=== PATIENT | female | born 1970 | race Caucasian/White ===

== ENCOUNTER 2017-12-08 12:22 | Emergency (ER) | payer SELFPAY ==
--- NOTE | 2017-12-08 12:25 | ED.RN ---
PT RIPS OF BP CUFF AND STORMS OUT OF DEPARTMENT SCREAMING. I WILL NOT BE ABUSED.
== END 2017-12-08 13:25 | disposition left against medical advice (07) ==
LOC: ED 13:07
PROVIDERS: Emergency Provider Emergency Medicine
DX: Z53.21 Procedure and treatment not carried out due to patient leaving prior to being seen by health care provider (principal)

== ENCOUNTER 2017-12-10 11:57 | Emergency (ER) | payer MEDICARE, SELFPAY ==
[2017-12-10] VITALS (7 sets, daily range): BP systolic 143; BP diastolic 94; PULSE 63–130; RESP 12–18; TEMP 36.8; O2SAT 95–98; BMI 42.2
--- NOTE | 2017-12-10 12:20 | EKG12_ITS ---
Test Reason : MENTAL HEALTH Blood Pressure : / mmHG Vent. Rate : 071 BPM Atrial Rate : 071 BPM P-R Int : 180 ms QRS Dur : 078 ms QT Int : 402 ms P-R-T Axes : 025 -03 027 degrees QTc Int : 436 ms Normal sinus rhythm Low voltage QRS Inferior infarct , age undetermined Abnormal ECG Confirmed by KADI SANFORD, ANTHONY ([id number]), loan expeditor MONTSERRAT CAMPBELL ([id number]) on 12/14/2017 2:51:00 PM Referred By: VITA Confirmed By:ANTHONY WALLIS MD
--- NOTE | 2017-12-10 12:26 | ED.VISSUMM ---
- ER Visit Summary Date of Service: 12/10/17 Chief Complaint: Threatening emergency department staff History of Present Illness: The patient is a 47 F who was brought in by police. She was at home. She was calling the emergency department today. She says she has a gone and was going to shoot staff in the emergency department. Apparently, she has been calling the hospital over the past several days with increasing threats of violence. Patient has a history of bipolar disorder and psychosis. She was previously admitted at [facility]. She has no suicidal complaints. She has no medical complaints other than occasional constipation, but she would not cooperate with the history. Physical Examination: Tachycardic. Afebrile. Alert and oriented. Blunt affect. Agitated. Very tense and angry. Patient has flight of ideas. Trouble concentrating head and neck atraumatic. Heart regular. Lungs clear. Abdomen soft. Skin appears normal. Test Results: We will check labs, tox, alcohol, EKG, and test. Emergency Department Course and Treatment: Patient had psych precautions on arrival. She was pink slipped by police. Geodon IM as needed for agitation. We will continue to monitor and contact the crisis counselor. Patient did not require Geodon at the time of this dictation. Her workup is largely unremarkable. Patient is medically cleared to proceed with psychiatric hospitalization. Crisis counselor was contacted. Treatment Plan: As above Disposition: Transfer to psychiatric facility pending Impression: 1. Mood disorder 2. Homicidal ideation This note was generated with [employer]Ground dictation software. It may contain incorrect words, spelling, and punctuation that were not noted in review of the chart prior to signing ED Disposition - Plan for ED Patient: Chief Complaint: Mental Health Referrals: Care Physician,No Primary [Primary Care Provider] -
--- NOTE | 2017-12-10 12:29 | ED.DCSUM_ITS ---
- ER Visit Summary Date of Service: 12/10/17 Chief Complaint: Threatening emergency department staff History of Present Illness: The patient is a 47 F who was brought in by police. She was at home. She was calling the emergency department today. She says she has a gone and was going to shoot staff in the emergency department. Apparently, she has been calling the hospital over the past several days with increasing threats of violence. Patient has a history of bipolar disorder and psychosis. She was previously admitted at [facility]. She has no suicidal complaints. She has no medical complaints other than occasional constipation, but she would not cooperate with the history. Physical Examination: Tachycardic. Afebrile. Alert and oriented. Blunt affect. Agitated. Very tense and angry. Patient has flight of ideas. Trouble concentrating head and neck atraumatic. Heart regular. Lungs clear. Abdomen soft. Skin appears normal. Test Results: We will check labs, tox, alcohol, EKG, and test. Emergency Department Course and Treatment: Patient had psych precautions on arrival. She was pink slipped by police. Geodon IM as needed for agitation. We will continue to monitor and contact the crisis counselor. Patient did not require Geodon at the time of this dictation. Her workup is largely unremarkable. Patient is medically cleared to proceed with psychiatric hospitalization. Crisis counselor was contacted. Treatment Plan: As above Disposition: Transfer to psychiatric facility pending Impression: 1. Mood disorder 2. Homicidal ideation This note was generated with Nurix dictation software. It may contain incorrect words, spelling, and punctuation that were not noted in review of the chart prior to signing ED Disposition - Plan for ED Patient: Chief Complaint: Mental Health Referrals: Care Physician,No Primary [Primary Care Provider] -
[2017-12-10 12:30] LABS: Bacteria 0 SEEN /hpf (None Seen); Color, Urine Yellow (Yellow); Glucose, Dipstick NEGATIVE (Normal); Ketone-Dipstick 5 mg/dl (Negative); Leukocyte Esterase-Dipstick 25 /ul (Negative); Mucous, Urine 0 SEEN /hpf (<or=2+); Nitrite-Dipstick Negative (Negative); Occult Blood-Urine 10 /ul (Negative); Protein-Dipstick Negative (Negative); Red Blood Cells-Urine 0 SEEN /hpf (0-5); Urine Bilirubin Dipstick Negative (Negative); Urine Clarity Clear (Clear); Urine Urobilinogen Normal (Normal); White Blood Cells 0-5 SEEN /hpf (0-5)
[2017-12-10 12:31] LABS: Squamous Epithelial Cells - UA 0-5 SEEN /hpf (5-10)
[2017-12-10 12:32] LABS: Internal QC Validated? YES +Cl - CLEAR BKGD; Pregnancy, Urine Negative Negative
[2017-12-10 12:57] LABS: Absolute Lymphocyte Count 1.33 X10^3/ul (0.83-4.51); Basophil# 0.03 X10^3/uL; Basophil% 0.4 % (0-1); Eosinophil# 0.13 X10^3/uL; Eosinophils% 1.8 % (0-5); Hematocrit 43.7 % (37-47); Hemoglobin 14.5 g/dl (12.0-15.0); Lymphocyte # 1.33 X10^3/ul (4.0); Lymphocyte % 18.4 % (19-41); Mean Corp Hgb Conc 33.2 g/gl (32-36); Mean Corpuscular Hgb 29.6 pg (27.0-32.0); Mean Corpuscular Volume 89.2 fL (81-99); Mean Platelet Vol. 9.5 fl (6.2-12.0); Monocyte# 0.69 X10^3/uL; Monocyte% 9.5 % (0-10); Neutrophil # 5.04 X10^3/uL (2.7-7.7); Neutrophil % 69.8 % (47-70); Platelet Count 313 K/mm3 (150-450); RBC Distribution Width CV 12.7 % (11.6-14.6); RBC Distribution Width SD 40.8 fl (35.1-43.9); White Blood Count 7.2 K/mm3 (4.4-11.0)
[2017-12-10 13:01] LABS: Amphetamine Urine VISTA NEGATIVE (<1000 ng/mL); Barbiturate Urine VISTA NEGATIVE (< 200 ng/mL); Benzodiazepine Urine VISTA NEGATIVE (< 200 ng/mL); Cocaine Urine VISTA NEGATIVE (< 300 ng/mL); Ecstacy Urine VISTA NEGATIVE (< 500 ng/mL); Methadone Urine VISTA NEGATIVE (< 300 ng/mL); PCP Urine VISTA NEGATIVE (< 25 ng/mL); THC Urine VISTA NEGATIVE (< 50 ng/mL); Vista UDS pH Range 5
[2017-12-10 13:02] LABS: POSITIVE COUNT NO; POSITIVE DIFFERENTIAL NO; POSITIVE MORPHOLOGY NO
[2017-12-10 13:15] LABS: AST(SGOT) 19 U/L (15-37); Alanine Aminotransfer ALT/SGPT 30 U/L (13-56); Alkaline Phosphatase 88 U/L (45-117); Anion Gap 9 (5-15); BUN 12 mg/dL (7-18); BUN/Creat Ratio 17.6 RATIO (10-20); Calcium,Total 8.7 mg/dL (8.5-10.1); Chloride 108 mmol/L (98-107); Creatinine, Serum 0.68 mg/dL (0.55-1.02); EST Glomerular Filtration Rate 99 mL/min (>60); Est Glom Filt Rate - Afr Amer 120 mL/min (>60); Estimated Creatinine Clearance 90.22 ml/min; Globulin 3.9 g/dL (2.2-4.2); Glucose 95 mg/dL (74-106); Potassium 3.5 mmol/L (3.5-5.1); Protein, Total 7.9 g/dL (6.4-8.2); Sodium Level 144 mmol/L (136-145)
--- NOTE | 2017-12-10 13:37 | PCA ---
[facility] WILL BE CALLING BACK
[2017-12-10 14:27] LABS: Alcohol, Blood (Medical)-Serum < 3.0 mg/dL
--- NOTE | 2017-12-10 17:38 | ED.RN ---
[facility]
--- NOTE | 2017-12-10 19:09 | ED.RN ---
THIS RN SPOKE WITH BONITA [facility] COUNSELOR, PT IS PINK SLIPPED TO [facility], IS CURRENTLY AWAITING AN ACCEPTING DRJose AND A BED. HE REPORTS PT WILL BE HERE OVERNIGHT.
--- NOTE | 2017-12-10 21:59 | ED.RN ---
PT UP TO BATHROOM, REFUSES TO TIE GOWN, GOWN FALLING OFF IN HALLWAY EXPOSING PT. PT SITTING UPRIGHT IN BED, TALKING LOUDLY IN RAMBLING TONE, DENIES NEEDS WHEN ASKED.
[2017-12-11] VITALS (22 sets, daily range): BP systolic 140–197; BP diastolic 70–100; PULSE 75–89; RESP 14–20; TEMP 36.7; O2SAT 95–99
[2017-12-11] MEDS: Ziprasidone IM 20 MG/ML VIAL IM (05:16)
--- NOTE | 2017-12-11 05:19 | ED.RN ---
PT WALKED TO THE WAITING ROOM AND WAS ARGUING AND WOULD NOT LISTEN TO EXPLANATION.PT REFUSED TO GO BACK TO HER ROOM AND STATED SHE DID NOT HAVE TO.EXPLANATION WAS GIVEN FOR WHY SHE NEEDED TO STAY IN HER ROOM.PT BECAME LOUDER AND LOUDER.SECURITY CALLED AND THE [place] POLICE.PT FINIALLY WENT BACK TO HER ROOM,BUT WOULD NOT COOPERATE.PT WAS ESCULATING,GEODON WAS GIVEN AND LEATHER RESTRAINTSX4 APPLIED.POLICE AND SECURITY IN ROOM.
--- NOTE | 2017-12-11 09:10 | NURSING ---
CALLED [facility], TALKED TO AZUL. SHE WILL CALL AND CHECK ON ACCEPTANCE AT [facility].
--- NOTE | 2017-12-11 10:33 | NURSING ---
1026 SHYANN IGLESIAS, CALLED. THERE ARE 4 ADMITS AND 2 AFTER THAT BEFORE PATIENT CAN GET A BED. MIGHT BE TONIGHT OR TOMORROW FOR BED
[2017-12-11] MEDS: Ziprasidone IM 20 MG/ML VIAL 10 MG IM (12:21)
--- NOTE | 2017-12-11 17:27 | NURSING ---
CALLED [facility], TALKED TO BONITA. HE'S WAITING TO HEAR FROM JOSE LUIS. JOSE LUIS IS IN [place]
--- NOTE | 2017-12-11 18:06 | ED.RN ---
[facility]IS CALLED (BONITA ELLIS) INFORMED US THAT THE PATIENT WILL NOT HAVE A ROOM UNTIL EARLIEST TOMORROW.
== END 2017-12-11 22:57 ==
PROVIDERS: Emergency Provider Emergency Medicine
DX: F31.9 Bipolar disorder, unspecified (principal); F29 Unspecified psychosis not due to a substance or known physiological condition; R45.850 Homicidal ideations; R45.1 Restlessness and agitation; K59.00 Constipation, unspecified; Z79.899 Other long term (current) drug therapy; Z78.1 Physical restraint status; Z72.0 Tobacco use
CPT/HCPCS: 80053; 80307; 80320; 81001; 81025; 85025; 93005; 96372; 99283; A4216; G0480; J3486

== ENCOUNTER 2018-06-03 11:08 | Emergency (ER) | payer MEDICARE, MEDICAID, SELFPAY ==
[2018-06-03] VITALS (11 sets, daily range): BP systolic 130–162; BP diastolic 64–108; PULSE 76–89; RESP 15–23; TEMP 36.6; O2SAT 95–100; BMI 39.4
--- NOTE | 2018-06-03 11:27 | ED.VISSUMM ---
- ER Visit Summary Date of Service: 06/03/18 Chief Complaint: [] Upset and threatening neighbors brought in by police history of mental health disorders History of Present Illness: The patient is a 48 F [] patient reportedly called the police this morning because she was concerned neighbors or other individuals were gaining access to her home and disrupting her home by taking good food and putting bad food in, throwing garbage all over the place etc., the police came at her request date performed an assessment she seems very belligerent she seemed to have difficulty focusing would move from one topic to the other, she has a history of known mental health disorder that might include bipolar disease/disorder, delusional disorder unspecified and the police recommended she come to the hospital and she agreed to that for mental health evaluation. On arrival she is quite belligerent she is threatening she screaming she will not focus she indicates that she is upset that the police did not simply arrest her neighbors and that she should not be here, she is also suggesting she is not taking any of her medications nor she following up with any of her providers and she also indicates she just recently was [facility] from [facility] provide details. On general Physical Examination: [] Her vital signs are within normal range on general appearance she is resting in the bed she is an animated she is screaming and yelling she jumped out of the bed to expose her body, she really is uncooperative to examination, I offered to have the protective services officer leave the room so should we could have the history and physical done she refused that insisted the protective services officer stay in the room, she allowed a limited exam there was no obvious abnormalities with her head neck chest abdomen obesity, extremities unremarkable neurologically she is awake and alert running around the room in the emergency department screaming and yelling. I have explained to the patient that she needs to cooperate with our general care protocols and mental health protocols which would include that she get into a gown allow laboratory screening urinalysis collection etc. which she refuses all the above and continues to be threatening and belligerent to staff and threatening to staff for her safety as well as safety of staff should be placed in four-point jarett and provided chemical sedation to help with her care, she continued to scream and yell and be threatening to staff and she was placed in four-point jarett, she will medicated with Geodon 20 Ativan 1 additional medications as clinically warranted and needed, in addition I have asked the mental health services team to come in to complete a mental health assessment Test Results: [] Emergency Department Course and Treatment: [] Screening labs are pending all the above, and are unremarkable, she has been seen now by mental health services they indicate she has a history of paranoid schizophrenia not bipolar disorder Treatment Plan: [] Disposition: [] Pending mental health services evaluation Impression: [] Belligerent behavior, threatening of neighbors, history of mental health disorder noncompliance medications, history of paranoid schizophrenia This note was generated with MondeCafes dictation software. It may contain incorrect words, spelling, and punctuation that were not noted in review of the chart prior to signing ED Disposition - Plan for ED Patient: Chief Complaint: Suicidal Referrals: Care Physician,No Primary [Primary Care Provider] -
--- NOTE | 2018-06-03 11:31 | ED.DCSUM_ITS ---
- ER Visit Summary Date of Service: 06/03/18 Chief Complaint: [] Upset and threatening neighbors brought in by police history of mental health disorders History of Present Illness: The patient is a 48 F [] patient reportedly called the police this morning because she was concerned neighbors or other individuals were gaining access to her home and disrupting her home by taking good food and putting bad food in, throwing garbage all over the place etc., the police came at her request date performed an assessment she seems very belligerent she seemed to have difficulty focusing would move from one topic to the other, she has a history of known mental health disorder that might include bipolar disease/disorder, delusional disorder unspecified and the police recommended she come to the hospital and she agreed to that for mental health evaluation. On arrival she is quite belligerent she is threatening she screaming she will not focus she indicates that she is upset that the police did not simply arrest her neighbors and that she should not be here, she is also suggesting she is not taking any of her medications nor she following up with any of her providers and she also indicates she just recently was released from skilled nursing one provide details. On general Physical Examination: [] Her vital signs are within normal range on general appearance she is resting in the bed she is an animated she is screaming and yelling she jumped out of the bed to expose her body, she really is uncooperative to examination, I offered to have the science and operations officer leave the room so should we could have the history and physical done she refused that insisted the science and operations officer stay in the room, she allowed a limited exam there was no obvious abnormalities with her head neck chest abdomen obesity, extremities unremarkable neurologically she is awake and alert running around the room in the emergency department screaming and yelling. I have explained to the patient that she needs to cooperate with our general care protocols and mental health protocols which would include that she get into a gown allow laboratory screening urinalysis collection etc. which she refuses all the above and continues to be threatening and belligerent to staff and threatening to staff for her safety as well as safety of staff should be placed in four-point jarett and provided chemical sedation to help with her care, she continued to scream and yell and be threatening to staff and she was placed in four-point jarett, she will medicated with Geodon 20 Ativan 1 additional medications as clinically warranted and needed, in addition I have asked the mental health services team to come in to complete a mental health assessment Test Results: [] Emergency Department Course and Treatment: [] Screening labs are pending all the above, and are unremarkable, she has been seen now by mental health services they indicate she has a history of paranoid schizophrenia not bipolar disorder Treatment Plan: [] Disposition: [] Pending mental health services evaluation Impression: [] Belligerent behavior, threatening of neighbors, history of mental health disorder noncompliance medications, history of paranoid schizophrenia This note was generated with Yorxs dictation software. It may contain incorrect words, spelling, and punctuation that were not noted in review of the chart prior to signing ED Disposition - Plan for ED Patient: Chief Complaint: Suicidal Referrals: Care Physician,No Primary [Primary Care Provider] -
[2018-06-03 11:44] LABS: Absolute Lymphocyte Count 2.22 X10^3/ul (0.83-4.51); Absolute Neutrophil Count 6.1 X10^3/uL (2.0-7.7); Basophil# 0.04 X10^3/uL; Basophil% 0.4 % (0-1); Eosinophil# 0.27 X10^3/uL; Eosinophils% 2.9 % (0-5); Hematocrit 40.9 % (37-47); Hemoglobin 13.4 g/dl (12.0-15.0); Lymphocyte # 2.22 X10^3/ul (4.0); Lymphocyte % 23.9 % (19-41); Mean Corp Hgb Conc 32.8 g/gl (32-36); Mean Corpuscular Hgb 29.5 pg (27.0-32.0); Mean Corpuscular Volume 89.9 fL (81-99); Mean Platelet Vol. 9.2 fl (6.2-12.0); Monocyte# 0.67 X10^3/uL; Monocyte% 7.2 % (0-10); Neutrophil # 6.07 X10^3/uL (2.7-7.7); Neutrophil % 65.4 % (47-70); Platelet Count 308 K/mm3 (150-450); RBC Distribution Width CV 13.2 % (11.6-14.6); RBC Distribution Width SD 43.3 fl (35.1-43.9); Red Blood Count 4.55 M/mm3 (4.2-5.4); White Blood Count 9.3 K/mm3 (4.4-11.0)
[2018-06-03] MEDS: LORazepam 2 MG/ML Syringe 1 MG IM ×2 (11:46→16:05)
[2018-06-03] MEDS: Ziprasidone IM 20 MG/ML VIAL IM ×2 (11:46→18:43)
--- NOTE | 2018-06-03 11:47 | ED.RN ---
1 ON 1 SUPERVISION THAT STARTED AT 1109.
[2018-06-03 11:49] LABS: POSITIVE COUNT NO; POSITIVE DIFFERENTIAL NO; POSITIVE MORPHOLOGY NO
[2018-06-03 11:51] LABS: Anion Gap 9 (5-15); BUN 13 mg/dL (7-18); Calcium,Total 8.5 mg/dL (8.5-10.1); Chloride 111 mmol/L (98-107); Creatinine, Serum 0.68 mg/dL (0.55-1.02); EST Glomerular Filtration Rate 98 mL/min (>60); Est Glom Filt Rate - Afr Amer 119 mL/min (>60); Estimated Creatinine Clearance 89.27 ml/min; Glucose 102 mg/dL (74-106); Potassium 3.7 mmol/L (3.5-5.1); Sodium Level 145 mmol/L (136-145)
[2018-06-03 11:57] LABS: Amphetamine Urine VISTA NEGATIVE (<1000 ng/mL); Barbiturate Urine VISTA NEGATIVE (< 200 ng/mL); Benzodiazepine Urine VISTA NEGATIVE (< 200 ng/mL); Cocaine Urine VISTA NEGATIVE (< 300 ng/mL); Ecstacy Urine VISTA NEGATIVE (< 500 ng/mL); Methadone Urine VISTA NEGATIVE (< 300 ng/mL); PCP Urine VISTA NEGATIVE (< 25 ng/mL); THC Urine VISTA NEGATIVE (< 50 ng/mL); Vista UDS pH Range 5
[2018-06-03 12:23] LABS: Alcohol, Blood (Medical)-Serum < 3.0 mg/dL
[2018-06-03 12:31] LABS: Pregnancy, Serum, hCG Quali. NEGATIVE Negative (0-9 Nonpreg)
--- NOTE | 2018-06-03 13:03 | ED.RN ---
[facility]IS[facility] WAS CALLED AT 1236 TO HAVE THEM COME SEE PATIENT. CALLED AGAIN AT 1300 AND THE DRAWING IN MACHINE TENDER STATED THE COUNSELOR SHOULD BE ON THE WAY.
--- NOTE | 2018-06-03 13:09 | ED.RN ---
BONITA ELLIS IS HERE TO SEE PATIENT.
--- NOTE | 2018-06-03 13:19 | ED.RN ---
THIS RN OFFERED A MEAL TRAY TO PT. PT REFUSING TO EAT AT THIS TIME. PT EDUCATED TO NOTIFY STAFF WHEN HUNGRY AND MEAL WOULD BE OBTAINED.
--- NOTE | 2018-06-03 14:27 | EKG12_ITS ---
Test Reason : MENHEALTH Blood Pressure : / mmHG Vent. Rate : 074 BPM Atrial Rate : 074 BPM P-R Int : 170 ms QRS Dur : 082 ms QT Int : 406 ms P-R-T Axes : 014 000 026 degrees QTc Int : 450 ms Normal sinus rhythm Low voltage QRS Inferior infarct , age undetermined Cannot rule out Anterior infarct , age undetermined Abnormal ECG Confirmed by DARA SANFORD, ALTON ([id number]), publication editor MONTSERRAT CAMPBELL ([id number]) on 06/06/2018 2:38:34 PM Referred By: GRICELDA Confirmed By:ALTON DIAMOND MD
[2018-06-03 14:53] LABS: AST(SGOT) 13 U/L (15-37); Alanine Aminotransfer ALT/SGPT 24 U/L (13-56); Albumin, Serum 3.5 g/dL (3.2-5.0); Alkaline Phosphatase 89 U/L (45-117); Globulin 3.8 g/dL (2.2-4.2); Protein, Total 7.3 g/dL (6.4-8.2)
--- NOTE | 2018-06-03 16:27 | ED.RN ---
CALLED [facility] TO CHECK ON STATUS. JAZMÍN GREENFIELD STATED THAT WE ARE WAITING FOR THE DOCTOR TO FINISH REVIEWING HER PACKET AND WAITING FOR A BED.
--- NOTE | 2018-06-03 17:07 | ED.RN ---
PT USED BEDPAN AND PULLED IT OUT HERSELF. PT GOT URINE ON THE SHEET. PT INITIALLY REFUSED TO HAVE SHEET CHANGED. THIS NURSE MADE THE PT ALLOW THE NURSES TO CHANGE SHEET. PT WAS ANGRY ABOUT THE WET SHEET BEING CHANGED.
--- NOTE | 2018-06-03 18:07 | ED.RN ---
CALLED [facility] AND ADMITTING STATED THEY ONLY HAVE 3 BEDS AND WAS GOING TO SAVE THEM FOR PATIENT'S WITH NO INSURANCE. THEY ALSO STATED THAT THEY WOULD PROBABLY HAVE DISCHARGES TOMORROW AND SHE WOULD MOST LIKELY BE ABLE TO GO SOMETIME TOMORROW.
[2018-06-04] VITALS (16 sets, daily range): BP systolic 123–174; BP diastolic 62–114; PULSE 72–98; RESP 14–27; O2SAT 94–100
[2018-06-04] MEDS: Ziprasidone IM 20 MG/ML VIAL IM ×2 (04:06→20:11)
--- NOTE | 2018-06-04 04:10 | ED.RN ---
PT LAYING IN BED TALKING AND YELLING. WHEN EXPLAINED TO PT WHAT MEDICATION SHE WAS RECEIVING PT STATES FUCK OFF. PT GIVEN GEODON IN LEFT ARM
--- NOTE | 2018-06-04 04:22 | ED.RN ---
RN AT BEDSIDE CONTINUOUSLY. PT REMAINS RESTRAINED. PT CONTINUES TO YELL OUT
[2018-06-04] MEDS: Midazolam 2 MG/2 ML Syringe IM (08:03)
--- NOTE | 2018-06-04 08:37 | ED.RN ---
BEDPAN OFFERED TO PT. PT REFUSED.
[2018-06-04 08:45] LABS: CPK Total, Creatine Kinase 64 U/L (26-192)
[2018-06-04] MEDS: Midazolam 2 MG/2 ML Syringe IV (12:54)
--- NOTE | 2018-06-04 12:55 | NURSING ---
TRIED TO CALL [facility]. THERE PHONE LINES ARE NOT WORKING
--- NOTE | 2018-06-04 13:36 | ED.RN ---
pt verbalizes she is going to bomb the hospital. pt continues in restraints d/t threats of violence. pt agrees to lunch. order entered. sitter continues at bedside.
--- NOTE | 2018-06-04 14:17 | ED.RN ---
LUNCH TRAY DELIVERED TO PT, PT REFUSED STATING THAT SHE DIDN'T WANT TO EAT BECAUSE IT IS POISON. SEVERAL ATTEMPTS WERE MADE TO REASSURE PT THAT THE FOOD WAS SAFE TO EAT, BUT PT CONTINUES TO REFUSE.
--- NOTE | 2018-06-04 14:56 | ED.RN ---
PT WAS EVALUATED BY THE CONTRACT ACCOUNTANT AND DR DAVILA ALSO AGREED THAT THE PT IS NOT SUICIDAL. PT IS HAVING A PSYCHOTIC EPISODE. DR DAVILA ORDERED THAT THE SITTER BE DISCONTINUED.
--- NOTE | 2018-06-04 14:59 | CM.ED ---
Social Work Note Face to face with pt to assess suicide risk. Introduced self and role at [facility]. The pt immediately requests that this job specification writer grab a chair to sit next to her because I have a lot to say. Pt presents with a flat affect as evidenced by no change or variation in expression, mood or tone of voice throughout assessment. Pt is a 48 y/o obese female who is lying on a hospital bed in four point restraints with her head elevated. She is alert and her interactions indicate that she is guarded and suspicious of surroundings and staff. She takes interest in this job specification writer as she thinks this job specification writer is working with children services to make a case against her. States, I may be now, and I am good with children. 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 Again educate to this job specification writer's role. Unable to assess pt's motor skills as she is in restraints and not moving, no unusual movements such as lip smacking, tremors or grimacing observed throughout assessment. Pt's speech is rapid, but monotonous and clear. Speech is very spontaneous and pt moves throughout various topics during assessment. Pt states that she has wished she were in the past, but that she has not had any intent or plan to harm herself for a long time. Upon further exploration the pt indicates that she has not intended to harm herself in over a decade. Complete the [place]-Suicide Severity Rating Scale with pt which indicates that she is not suicidal. Pt states frustration with RN that was serving as her sitter, stating that she had poisoned me to make me sick. RN exits room. Pt then states that she thinks some people deserve to be hurt if they have harmed her or her reputation. Reports that she does have people in her life she thinks deserve this such as Hong, her sons' father. Inform pt that SW will discuss findings with physician. Pt requests that four point restraints be removed. Inform that SW is assessing for the need of the sitter at this time. Pt breaks eye contact and looks forward only, and stops communicating with this job specification writer. Discuss with physician who agrees that the pt does not require a sitter at this time, but that the open door and restraints will remain as she has paranoid delusions regarding staff's care towards her. Do not feel staff would be safe if restraints were removed. box tender, Tobias Nguyen, updated. Plan: Await psychiatric hospitalization, and remove sitter precaution as pt is not a suicide risk. Josie Quintanilla, SHEET METAL WORKER MAINTENANCE, SLEEP MANAGER
--- NOTE | 2018-06-04 18:00 | ED.RN ---
OFFERED MEAL TRAY. PT REFUSED AND DEMANDED FOOD BE TAKEN OUT OF HER ROOM. STATES THE FOOD IS POISONED.
== END 2018-06-04 20:20 ==
PROVIDERS: Emergency Medicine; Emergency Provider Emergency Medicine
DX: F20.0 Paranoid schizophrenia (principal); Z78.1 Physical restraint status; Z91.14 Patient's other noncompliance with medication regimen
CPT/HCPCS: 80048; 80076; 80307; 80320; 82550; 84703; 85025; 93005; 96372; 99285; G0480; J3486

== ENCOUNTER 2018-09-23 13:08 | Emergency (ER) | payer MEDICARE, SELFPAY ==
[2018-09-23] VITALS (9 sets, daily range): BP systolic 138–174; BP diastolic 70–113; PULSE 78–111; RESP 14–17; TEMP 36.9; O2SAT 95–98; BMI 40.3
--- NOTE | 2018-09-23 13:24 | EKG12_ITS ---
Test Reason : MENTAL CLEARANCE Blood Pressure : / mmHG Vent. Rate : 091 BPM Atrial Rate : 091 BPM P-R Int : 162 ms QRS Dur : 080 ms QT Int : 368 ms P-R-T Axes : 039 -12 027 degrees QTc Int : 452 ms Normal sinus rhythm Low voltage QRS Inferior infarct , age undetermined Cannot rule out Anterior infarct , age undetermined Abnormal ECG Confirmed by KADI ASNFORD, ANTHONY ([id number]), publications editor MONTSERRAT CAMPBELL ([id number]) on 09/25/2018 9:20:51 AM Referred By: SARAH Confirmed By:ANTHONY WALLIS MD
[2018-09-23 14:15] LABS: Absolute Lymphocyte Count 1.47 X10^3/ul (0.83-4.51); Absolute Neutrophil Count 7.4 X10^3/uL (2.0-7.7); Basophil# 0.02 X10^3/uL; Basophil% 0.2 % (0-1); Hematocrit 42.6 % (37-47); Hemoglobin 14.1 g/dl (12.0-15.0); Lymphocyte # 1.47 X10^3/ul (4.0); Lymphocyte % 15.3 % (19-41); Mean Corp Hgb Conc 33.1 g/gl (32-36); Mean Corpuscular Hgb 29.6 pg (27.0-32.0); Mean Corpuscular Volume 89.5 fL (81-99); Mean Platelet Vol. 9.3 fl (6.2-12.0); Monocyte# 0.64 X10^3/uL; Monocyte% 6.7 % (0-10); Neutrophil # 7.38 X10^3/uL (2.7-7.7); Neutrophil % 76.7 % (47-70); Platelet Count 318 K/mm3 (150-450); RBC Distribution Width CV 13.1 % (11.6-14.6); RBC Distribution Width SD 42.6 fl (35.1-43.9); Red Blood Count 4.76 M/mm3 (4.2-5.4); White Blood Count 9.6 K/mm3 (4.4-11.0)
[2018-09-23 14:17] LABS: POSITIVE COUNT NO; POSITIVE DIFFERENTIAL NO; POSITIVE MORPHOLOGY NO
[2018-09-23 14:30] LABS: Alcohol, Blood (Medical)-Serum < 3.0 mg/dL
[2018-09-23 14:33] LABS: ALB/GLOB Ratio 1.2 RATIO (0.9-2.4); AST(SGOT) 18 U/L (15-37); Alanine Aminotransfer ALT/SGPT 35 U/L (13-56); Albumin, Serum 4.2 g/dL (3.2-5.0); Alkaline Phosphatase 87 U/L (45-117); Anion Gap 9 (5-15); BUN 13 mg/dL (7-18); BUN/Creat Ratio 18.1 RATIO (10-20); Calcium,Total 9.2 mg/dL (8.5-10.1); Chloride 112 mmol/L (98-107); Creatinine, Serum 0.72 mg/dL (0.55-1.02); EST Glomerular Filtration Rate 93 mL/min (>60); Est Glom Filt Rate - Afr Amer 112 mL/min (>60); Globulin 3.6 g/dL (2.2-4.2); Glucose 102 mg/dL (74-106); Potassium 3.7 mmol/L (3.5-5.1); Protein, Total 7.8 g/dL (6.4-8.2); Sodium Level 147 mmol/L (136-145)
[2018-09-23 14:38] LABS: Amphetamine Urine VISTA NEGATIVE (<1000 ng/mL); Barbiturate Urine VISTA NEGATIVE (< 200 ng/mL); Benzodiazepine Urine VISTA NEGATIVE (< 200 ng/mL); Cocaine Urine VISTA NEGATIVE (< 300 ng/mL); Ecstacy Urine VISTA NEGATIVE (< 500 ng/mL); Methadone Urine VISTA NEGATIVE (< 300 ng/mL); PCP Urine VISTA NEGATIVE (< 25 ng/mL); THC Urine VISTA NEGATIVE (< 50 ng/mL); Vista UDS pH Range 5
[2018-09-23 14:38] LABS: Pregnancy, Serum, hCG Quali. NEGATIVE Negative (0-9 Nonpreg)
--- NOTE | 2018-09-23 15:02 | ED.DCSUM_ITS ---
- ER Visit Summary Date of Service: 09/23/18 Chief Complaint: [Abnormal behavior] History of Present Illness: The patient is a 48 F [presents to the emergency department with complaint of abnormal behavior today. Patient was brought in by police and pink slipped. Patient has history of psychosis and history of noncompliance with medication. Patient apparently was trying to open doors to people's homes in an attempt to help people. Patient states I try not to torture people. Patient unable to answer my questions appropriately or give good history. Patient is well-known to this department. Patient denies being suicidal at this time.] Physical Examination: [HEENT-PERRLA, EOMI. Cranial nerves II through XII grossly intact. TMs clear. Mucous membranes moist. No adenopathy. Cardiovascular-regular rate and rhythm without murmur or ectopy Lungs-clear to auscultation, chest wall stable without crepitus or subcu emphysema Abdomen-normoactive bowel sounds, soft, nontender, no rebound or rigidity, no peritoneal signs. Extremities-intact ?4, normal range of motion, normal pulses, atraumatic] Test Results: EKG obtained on arrival showed a sinus rhythm with a ventricular rate of [address] changes noted. CBC with differential was normal. Chemistries unremarkable. HCG was negative. Toxicology screen was normal. Alcohol was less than 3. [] Emergency Department Course and Treatment: [Patient will require evaluation by crisis] Treatment Plan: [Evaluation by crisis for transfer to psychiatric facility for further evaluation and treatment of her psychosis. I do not feel patient is safe to discharge to home.] Disposition: [Pending evaluation by crisis] Impression: [Psychosis] This note was generated with [employer] dictation software. It may contain incorrect words, spelling, and punctuation that were not noted in review of the chart prior to signing ED Disposition - Plan for ED Patient: Chief Complaint: Mental Health Referrals: Care Physician,No Primary [Primary Care Provider] -
--- NOTE | 2018-09-23 15:25 | NURSING ---
FIAN, CRISIS, AWARE OF PATIENT AND HAS CHART.
[2018-09-23 16:03] LABS: Bacteria 0 SEEN /hpf (None Seen)
[2018-09-23 16:13] LABS: Color, Urine Yellow (Yellow); Glucose, Dipstick Normal (Normal); Ketone-Dipstick 15 mg/dl (Negative); Leukocyte Esterase-Dipstick 100 /ul (Negative); Nitrite-Dipstick Negative (Negative); Occult Blood-Urine 10 /ul (Negative); Protein-Dipstick 15 mg/dl (Negative); Specific Gravity, Urine 1.025 (1.002-1.030); Urine Bilirubin Dipstick Negative (Negative); Urine Clarity Sl. Cloudy (Clear); Urine Urobilinogen Normal (Normal)
[2018-09-23 16:57] LABS: Mucous, Urine 3+ /hpf (<or=2+); Red Blood Cells-Urine 0-5 SEEN /hpf (0-5); Squamous Epithelial Cells - UA 0-5 SEEN /hpf (5-10); White Blood Cells 5-10 SEEN /hpf (0-5)
--- NOTE | 2018-09-23 17:23 | NURSING ---
CALLED [facility] FOR TRANSPORT. ETA IS 45 MIN
--- NOTE | 2018-09-23 17:29 | NURSING ---
[facility] REFUSED PATIENT. CALLED [facility] AND CANCELLED SQUAD
--- NOTE | 2018-09-23 17:39 | ED.RN ---
Acceptance received from [facility] ITU unit and report given to Koko RN at 1715. [facility] called for transport. Call then received from [facility] Intake Unit at 1730 stating that due to acuity they would not be able to take this pt as previously stated inspite of prior Nurse to Nurse report. Crisis called; answering service reached; awaiting return call.
--- NOTE | 2018-09-23 18:05 | EKG12_ITS ---
Test Reason : MEDICAL CLEARANCE Blood Pressure : / mmHG Vent. Rate : 084 BPM Atrial Rate : 084 BPM P-R Int : 156 ms QRS Dur : 084 ms QT Int : 372 ms P-R-T Axes : 029 -03 043 degrees QTc Int : 439 ms Normal sinus rhythm Low voltage QRS Inferior infarct , age undetermined Cannot rule out Anterior infarct , age undetermined Abnormal ECG Confirmed by KADI SANFORD, ANTHONY ([id number]), movie editor MONTSERRAT CAMPBELL ([id number]) on 09/25/2018 9:21:32 AM Referred By: MEI Confirmed By:ANTHONY WALLIS MD
--- NOTE | 2018-09-23 18:36 | ED.RN ---
Pt left room and walked out of unit mumbling unintelligible comments. I encouraged pt to return to the room or we would have to restrain her to the bed to prevent her from wandering off and potentially injuring herself. She immediately turned around and walked back to the room and sat in bed without incident.
--- NOTE | 2018-09-23 18:42 | ED.RN ---
[place] and snacks offered to pt. She responded, I don't know what I want to do about that, several times. The food was left in the room. [place] out of container and placed on napkin. Pt is lying in bed quietly.
[2018-09-23] MEDS: Ziprasidone IM 20 MG/ML VIAL IM (19:16)
--- NOTE | 2018-09-23 19:17 | ED.RN ---
pt continued to walk out of room and walk thru department. pt walking into other pt rooms. pt escalating more and cursing under breath. pt back to room. accepts geodon to help calm her down
[2018-09-24] VITALS (9 sets, daily range): BP systolic 142–158; BP diastolic 70–94; PULSE 75–95; RESP 14–18; O2SAT 96–98
--- NOTE | 2018-09-24 01:31 | ED.RN ---
jessica with crisis updated on status. Patient was re screened by [facility]. Patient is out of mental health bed days. Patient will require admission to [facility] now.
[2018-09-24] MEDS: Ziprasidone IM 20 MG/ML VIAL IM (03:57)
[2018-09-24] MEDS: LORazepam 2 MG/ML Syringe IM (04:13)
--- NOTE | 2018-09-24 04:23 | ED.RN ---
Patient woke up and stated to staff she was leaving. Patient at this time advised she was not allowed to leave she was pink slipped and the must remain in the hospital. Patient kept walking towards door. Patient asked to return to the hospital or police would be called. Patient remains that she is leaving and walked out doors and walking down er ramp. Patient advised to return to ER. Patient refuses. [place] Police contacted. Patient found sitting in lawn across the street from hospital. [place] police about to get patient to return. Patient given medication at this time. Pt encouraged back into the room by police. [place] police remain at bedside until patient calms down. Patient has a random flight of ideas during interaction.
--- NOTE | 2018-09-24 07:58 | ED.RN ---
PT OFFERED BREAKFAST TRAY DELIVERED. PT REFUSED TRAY STATING THAT IT WAS POISONED AND THAT SHE COULDN'T EAT IT OR SHE WOULD THROW UP. ALTERNATIVE OPTIONS WERE OFFERED AND PT REFUSED STATING THAT SHE WASN'T GOING TO EAT BECAUSE WE WOULD MAKE HER SICK. PT DIRECTED TO INFORM THIS NURSE IF SHE WOULD LIKE TO EAT SOMETHING AND ACCOMMODATIONS WOULD BE ATTEMPTED TO BE MADE FOR HER WITHIN REASON AND ACCORDING TO DEPARTMENTAL POLICY.
--- NOTE | 2018-09-24 10:04 | ED.RN ---
REPORT CALLED TO MONICA BRODY AT [facility].
== END 2018-09-24 09:00 ==
PROVIDERS: Emergency Provider Emergency Medicine
DX: F20.0 Paranoid schizophrenia (principal); Z91.14 Patient's other noncompliance with medication regimen
CPT/HCPCS: 80053; 80307; 80320; 81001; 84703; 85025; 93005; 96372; 99283; G0480; J3486

== ENCOUNTER 2019-04-18 11:27 | Emergency (ER) | payer MEDICARE, SELFPAY ==
[2018-09-23 13:11] VITALS: BMI 40.3
[2019-04-18] VITALS (10 sets, daily range): BP systolic 139–169; BP diastolic 86–102; PULSE 98–125; RESP 15–24; TEMP 36.2; O2SAT 93–95; BMI 41.1
[2019-04-18 12:53] LABS: Anion Gap 9 (5-15); BUN 20 mg/dL (7-18); BUN/Creat Ratio 25.6 RATIO (10-20); Calcium,Total 9.8 mg/dL (8.5-10.1); Chloride 117 mmol/L (98-107); Creatinine, Serum 0.78 mg/dL (0.55-1.02); EST Glomerular Filtration Rate 84 mL/min (>60); Est Glom Filt Rate - Afr Amer 102 mL/min (>60); Estimated Creatinine Clearance 76.99 ml/min; Glucose 121 mg/dL (74-106); Potassium 4.4 mmol/L (3.5-5.1); Sodium Level 145 mmol/L (136-145)
[2019-04-18 13:08] LABS: Internal QC Validated? YES +Cl - CLEAR BKGD; Pregnancy, Serum, hCG Quali. NEGATIVE Negative
[2019-04-18 13:09] LABS: Alcohol, Blood (Medical)-Serum < 3.0 mg/dL
[2019-04-18 13:21] LABS: Absolute Lymphocyte Count 1.07 X10^3/uL (0.83-4.51); Absolute Neutrophil Count 8.1 X10^3/uL (2.0-7.7); Basophil# 0.05 X10^3/uL; Basophil% 0.5 % (0-1); Eosinophil# 0.09 X10^3/uL; Eosinophils% 0.9 % (0-5); Hematocrit 41.9 % (37-47); Hemoglobin 14.1 g/dL (12.0-15.0); Lymphocyte # 1.07 X10^3/ul (4.0); Lymphocyte % 10.6 % (19-41); Mean Corp Hgb Conc 33.7 g/dL (32-36); Mean Corpuscular Hgb 29.3 pg (27.0-32.0); Mean Corpuscular Volume 86.9 fL (81-99); Mean Platelet Vol. 9.4 fl (6.2-12.0); NRBC Flagged by Analyzer 0 % (0-5); Neutrophil # 8.11 X10^3/uL (2.7-7.7); Neutrophil % 80.7 % (47-70); Platelet Count 337 K/mm3 (150-450); RBC Distribution Width CV 13.3 % (11.6-14.6); RBC Distribution Width SD 42.1 fl (35.1-43.9); Red Blood Count 4.82 M/mm3 (4.2-5.4); White Blood Count 10.1 K/mm3 (4.4-11.0)
[2019-04-18 13:41] LABS: Amphetamine Urine VISTA NEGATIVE (<1000 ng/mL); Barbiturate Urine VISTA NEGATIVE (< 200 ng/mL); Benzodiazepine Urine VISTA NEGATIVE (< 200 ng/mL); Cocaine Urine VISTA NEGATIVE (< 300 ng/mL); Ecstacy Urine VISTA NEGATIVE (< 500 ng/mL); Methadone Urine VISTA NEGATIVE (< 300 ng/mL); PCP Urine VISTA NEGATIVE (< 25 ng/mL); THC Urine VISTA NEGATIVE (< 50 ng/mL); Vista UDS pH Range 6
--- NOTE | 2019-04-18 13:57 | CM.ED ---
Social Work Consulting with interdisciplinary team, rex to evaluate patient due to recommendation for patient to have an extended placement in inpatient psychiatric facility. Telephone call to Rekah Yuan. This social media intern making referral. Justin TARANGO, EDGAR
[2019-04-18] MEDS: Ziprasidone IM 20 MG/ML VIAL IM (15:10)
--- NOTE | 2019-04-18 15:15 | ED.RN ---
REMOVED TWO LIMB RESTRAINTS. WILL CONTINUE TO MONITOR.
--- NOTE | 2019-04-18 15:45 | ED.RN ---
ATTEMPTED TO REMOVED RESTRAINTS. SHORTLY AFTER REMOVED, PATIENT TOOK OFF THE CONTENT PRODUCER AND BP CUFF. SHE THEN PROCEEDED TO REMOVE HER CLOTHING. REDIRECTED PATIENT VERBALLY. SHE WAS NOT COOPERATIVE. OFFERED HER FOOD AND TOILETING WHICH SHE DECLINED. PATIENT PLACED BACK IN RESTRAINTS AT 1550 WITHOUT COMPLICATIONS. ER MD AND CHARGE NURSE AWARE.
--- NOTE | 2019-04-18 16:09 | ED.DCSUM_ITS ---
- ER Visit Summary Date of Service: 04/18/19 Chief Complaint: Exacerbation of underlying psychiatric illness History of Present Illness: The patient is a 49 F of underlying psychiatric illness. Recently has stopped her psychiatric meds was found laying in someone's yard. When the police spoke to her she was nonsensically and brought her in the emergency department. Physical Examination: Female no distress. Vital signs are moist wheeze members. Neck nontender no meningismus. No lymphadenopathy. Lungs clear to auscultation bilaterally. Heart rhythm rate about 110 no murmur. Abdomen soft nontender normal bowel sounds no peritoneal signs. Extremities moves all 4. No signs of trauma. Back nontender. Neurologically she is awake alert. She answers limited questions. She follows limited commands I think is her not being enthusiastic to do so. Psychiatrically she has pressured speech with flight of ideas and incoherent thoughts. She is not saying anything about being homicidal or suicidal. There is no obvious signs of toxidrome and I do not smell of alcohol. Test Results: CBC White count 10. Hemoglobin 14. No bands. Chemistries chloride 117. CO2 19. BUN 20. Gap of 9. test negative. Tox screen negative. Alcohol negative. Emergency Department Course and Treatment: Patient with acute exacerbation of underlying psychiatric illness. Mental health evaluation was done. She is been medically cleared. Awaiting crisis evaluation for psychiatric admission. Treatment Plan: Turned over the afternoon physician awaiting crisis evaluation. Disposition: Pending crisis evaluation and placement Impression: Acute exacerbation of underlying psychiatric illness Acute psychosis Medical clearance for psychiatric placement Medical noncompliance This note was generated with myeasydocs dictation software. It may contain incorrect words, spelling, and punctuation that were not noted in review of the chart prior to signing ED Disposition - Plan for ED Patient: Referrals: Patrick Oquendo MD [Primary Care Provider] -
--- NOTE | 2019-04-18 17:45 | NURSING ---
1422 [facility], CRISIS, CALLED. THEY HAVE AN EMERGENCY AND WILL BE IN AFTER IT IS TAKEN CARE OF
[2019-04-18] MEDS: Benztropine 2 MG Tablet PO (20:47)
[2019-04-18] MEDS: OXcarbazepine 300 MG Tablet PO (20:48)
--- NOTE | 2019-04-18 21:24 | EKG12_ITS ---
Test Reason : PSYCH Blood Pressure : / mmHG Vent. Rate : 107 BPM Atrial Rate : 107 BPM P-R Int : 152 ms QRS Dur : 086 ms QT Int : 354 ms P-R-T Axes : 041 018 028 degrees QTc Int : 472 ms Sinus tachycardia Low voltage QRS Inferior infarct , age undetermined Cannot rule out Anterior infarct , age undetermined Abnormal ECG Confirmed by DARA SANFORD, ALTON ([id number]), testing and regulating technician MONTSERRAT CAMPBELL ([id number]) on 04/22/2019 11:39:40 AM Referred By: Confirmed By:ALTON DIAMOND MD
--- NOTE | 2019-04-18 21:45 | ED.RN ---
RESTRAINTS REMOVED. PATIENT COOPERATIVE. AMBULATED TO BATHROOM AND BACK TO ROOM WITH MINOR DIRECTION. SITTING IN CHAIR IN ROOM. DECLINES FOOD OR BEVERAGE. HRO IN ED.
[2019-04-18] MEDS: Haloperidol 5 MG Tablet 2.5 MG PO (22:20)
[2019-04-18] MEDS: DiphenhydrAMINE 25 MG Capsule PO (22:20)
[2019-04-18 22:21] LABS: AST(SGOT) 43 U/L (15-37); Alanine Aminotransfer ALT/SGPT 27 U/L (13-56); Albumin, Serum 4.2 g/dL (3.2-5.0); Alkaline Phosphatase 97 U/L (45-117); Globulin 4.1 g/dL (2.2-4.2); Protein, Total 8.3 g/dL (6.4-8.2)
[2019-04-18 22:32] LABS: CPK Total, Creatine Kinase 192 U/L (26-192)
[2019-04-18] MEDS: Midazolam 2 MG/2 ML Syringe IM (23:03)
[2019-04-18] MEDS: Haloperidol Lactate 5 MG/ML Vial 2 MG IM (23:03)
[2019-04-19] VITALS (9 sets, daily range): BP systolic 108–164; BP diastolic 72–113; PULSE 82–114; RESP 16–20; TEMP 37; O2SAT 93–99
--- NOTE | 2019-04-19 01:01 | ED.RN ---
PT CONTINUES TO WALK OUT OF THE ROOM AND AROUND THE DEPARTMENT. REGINE GAS APPLIANCE REPAIRER WITH THE PT ATTEMPTING TO GET HER BACK INTO THE ROOM. PT IS NOT AGGRESSIVE BUT CONTINUES TO TALK ABOUT THE SPIDERS AND CHEERLEADERS
[2019-04-19] MEDS: Ziprasidone IM 20 MG/ML VIAL IM (01:13)
--- NOTE | 2019-04-19 02:38 | ED.RN ---
PATIENT SEEMS TO BE SLEEPING, BUT SHE IS MOVING HER LEGS SOME AND TALKING IN HER SLEEP.
--- NOTE | 2019-04-19 03:53 | ED.RN ---
PATIENT CONTINUES TO HAVE FLIGHT OF IDEAS. SHE THOUGHT THIS NURSE WAS BRYNN, BUT THE CONVERSATION DID NOT MAKE SENSE. THIS NURSE SAT WITH THE PATIENT FOR 30 MINUTES, UNTIL SHE SAID I AM GOING TO LAY DOWN NOW. SHE DRANK A GLASS OF H20.
--- NOTE | 2019-04-19 05:00 | ED.RN ---
PATIENT SAT UP AGAIN SO THIS NURSE WENT IN TO SIT WITH HER. FLIGHT OF IDEAS NOTED, BUT SHE DIDN'T SEEM TO DIRECT THE CONVERSATION TO ME. SHE JUST WOULD SAY RANDOM THOUGHTS. WATER AND COOKIES WERE GIVEN. SHE ATE ONE COOKIE AND DRANK HER WATER.
== END 2019-04-19 08:19 ==
PROVIDERS: Emergency Medicine; Emergency Provider Emergency Medicine; Family Provider Family Medicine; PCP Family Medicine
DX: F23 Brief psychotic disorder (principal); Z91.19 Patient's noncompliance with other medical treatment and regimen; Z79.899 Other long term (current) drug therapy
CPT/HCPCS: 80048; 80076; 80307; 80320; 82550; 84703; 85025; 93005; 96372; 99283; G0480; J3486

== ENCOUNTER 2019-11-11 13:02 | Emergency (ER) | payer MEDICARE, SELFPAY ==
[2019-04-18 11:29] VITALS: BMI 41.1
[2019-11-11 13:03] VITALS: PULSE 118; RESP 18; TEMP 36.2; O2SAT 94; BMI 49.1
[2019-11-11 13:55] LABS: Absolute Lymphocyte Count 1.39 X10^3/uL (0.83-4.51); Absolute Neutrophil Count 9.3 X10^3/uL (2.0-7.7); Basophil# 0.04 X10^3/uL; Basophil% 0.3 % (0-1); Eosinophil# 0.26 X10^3/uL; Eosinophils% 2.2 % (0-5); Hematocrit 43.2 % (37-47); Lymphocyte # 1.39 X10^3/ul (4.0); Lymphocyte % 11.9 % (19-41); Mean Corp Hgb Conc 32.4 g/dL (32-36); Mean Corpuscular Hgb 28.6 pg (27.0-32.0); Mean Corpuscular Volume 88.2 fL (81-99); Mean Platelet Vol. 9.5 fl (6.2-12.0); Monocyte# 0.65 X10^3/uL; Monocyte% 5.6 % (0-10); NRBC Flagged by Analyzer 0 % (0-5); Neutrophil # 9.26 X10^3/uL (2.7-7.7); Neutrophil % 79.6 % (47-70); Platelet Count 328 K/mm3 (150-450); RBC Distribution Width CV 13.3 % (11.6-14.6); White Blood Count 11.7 K/mm3 (4.4-11.0)
[2019-11-11 14:15] LABS: Anion Gap 7 (5-15); BUN 14 mg/dL (7-18); BUN/Creat Ratio 19.3 RATIO (10-20); Calcium,Total 9.2 mg/dL (8.5-10.1); Chloride 111 mmol/L (98-107); Creatinine, Serum 0.72 mg/dL (0.55-1.02); EST Glomerular Filtration Rate 91 mL/min (>60); Est Glom Filt Rate - Afr Amer 111 mL/min (>60); Estimated Creatinine Clearance 83.41 ml/min; Glucose 130 mg/dL (74-106); Potassium 3.7 mmol/L (3.5-5.1); Sodium Level 143 mmol/L (136-145)
[2019-11-11 14:24] LABS: Internal QC Validated? YES +Cl - CLEAR BKGD; Pregnancy, Serum, hCG Quali. NEGATIVE Negative
--- NOTE | 2019-11-11 14:25 | CM.ED ---
Social Work Collaborating with team, patient requires mental health evaluation. After completing chart review, patient noted that last 4 stays patient was admitted to [facility] from the ER and crisis completed this placement. Telephone call to Debbie goodman. Debbie reporting that patient is noted to be out of bed days for insurance to cover inpatient psychiatric facility and this is why patient gets admitted to [facility]. Updated Dr. Lindsay on above information, patient currently denies S.I. but presenting with Paranoid thoughts and delusions. Dr. Lindsay recommending inpatient psychiatric placement, crisis to be consulted as social sciences instructor is unable to place to [facility]. Will contact crisis once patient is medically cleared. Justin German MSW, EDGAR
[2019-11-11 14:29] LABS: Alcohol, Blood (Medical)-Serum < 3.0 mg/dL
--- NOTE | 2019-11-11 14:40 | RAD_ITS ---
STUDY: X-RAY - ABDOMEN/PELVIS REASON FOR EXAM: Female, 49 years old. PT HAVING ABDOMINAL PAIN AND TROUBLE HAVING A BOWEL MOVEMENT TECHNIQUE: Single AP view of the abdomen / pelvis. COMPARISON: None. FINDINGS: Normal visualized lung bases. There is an abundance of fecal material throughout the colon. The visualized liver, spleen and kidneys are grossly normal in size and morphology. Normal soft tissue structures. Normal visualized osseous structures. RAD/Abdomen Single View IMPRESSION: Suspect constipation. Electronically Signed: Renard Vences MD at 14:55 EST Tel , Service support ,
--- NOTE | 2019-11-11 14:50 | ED.RN ---
PATIENT INTO BATHROOM TO PROVIDE URINE SAMPLE. PATIENT UNABLE TO PEE IN THE CUP.
--- NOTE | 2019-11-11 16:06 | ED.RN ---
PATIENT ASKED TO PROVIDE URINE SAMPLE. PATIENT STATES SHE DOESN'T NEED TO PEE. RN OFFERED FOOD AND BEVERAGE, PATIENT DECLINED.
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
--- NOTE | 2019-11-11 16:54 | ED.DEP ---
ED Disposition - Plan for ED Patient: Instructions: [place], General Referrals: Counseling,Center [GROUP OF PHYSICIANS] -
== END 2019-11-11 17:08 | disposition home or self-care (01) ==
LOC: ED 13:46
PROVIDERS: Emergency Provider Emergency Medicine
DX: F22 Delusional disorders (principal); F31.9 Bipolar disorder, unspecified; K59.00 Constipation, unspecified; Z72.0 Tobacco use; Z79.899 Other long term (current) drug therapy
CPT/HCPCS: 74018; 80048; 80320; 84703; 85025; 99284; G0480

== ENCOUNTER 2025-09-07 15:21 | Inpatient (IN) | payer MEDICARE, SELFPAY ==
[2025-09-07] VITALS (14 sets, daily range): BP systolic 94–132; BP diastolic 55–110; PULSE 90–120; RESP 16–26; TEMP 36.3–36.8; O2SAT 95–100; BMI 33.0; BMI 31.4
--- NOTE | 2025-09-07 15:54 | RAD_ITS ---
PROCEDURE: CHEST 1 VIEW (PORTABLE) 09/07/2025 REASON FOR EXAM: MEDICAL CLEARANCE TECHNIQUE: Procedure Code: RADCXPA_P Modality: DX Procedure: CHEST 1 VIEW (PORTABLE) Frontal view of the chest. FINDINGS: The cardiac and mediastinal contours are normal. The lungs are clear. RAD/Chest 1 View (Portable) IMPRESSION: NEGATIVE SINGLE VIEW OF THE CHEST. Reading Location: [facility]
--- NOTE | 2025-09-07 15:58 | CT_ITS ---
PROCEDURE: BRAIN/HEAD WITHOUT CONTRAST 09/07/2025 REASON FOR EXAM: CHANGE IN MENTAL STATUS TECHNIQUE: Procedure Code: CTBR Modality: CT Procedure: BRAIN/HEAD WITHOUT CONTRAST Coronal and Sagittal reconstruction series were provided. One or more dose reduction techniques were used (e.g., Automated exposure control, adjustment of the mA and/or kV according to patient size, use of iterative reconstruction technique. RADIATION DOSE SUMMARY: CTDlvol: 45 mGy DLP: 796 mGycm FINDINGS: Noncontrast CT study of the brain. Normal brainstem. Normal cerebellum. No intracranial mass. No intracranial hemorrhage. No hydrocephalus. Normal dunbar-white differentiation CT/Brain/Head without Contrast IMPRESSION: No acute abnormality Reading [facility]
--- NOTE | 2025-09-07 15:59 | EKG12_ITS ---
Test Reason : MENTAL HEALTH Blood Pressure : */* mmHG Vent. Rate : 115 BPM Atrial Rate : 115 BPM P-R Int : 140 ms QRS Dur : 78 ms QT Int : 372 ms P-R-T Axes : 49 -88 50 degrees QTcB Int : 514 ms Sinus tachycardia Low voltage QRS Left axis deviation Possible Inferior infarct (cited on or before 10-Dec-2017) Cannot rule out Anterior infarct (cited on or before 03-Jun-2018) Prolonged QT Abnormal ECG Confirmed by Christos Adame ([id number]), slot editor MELODY DUEÑAS ([id number]) on 09/09/2025 11:28:55 AM Also confirmed by Christos Adame ([id number]), slot editor MELODY DUEÑAS ([id number]) on 09/10/2025 10:53:52 AM Referred By: Confirmed By: Christos Adame
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
[2025-09-07 16:21] LABS: Mucous, Urine 0 SEEN /hpf (<or=2+)
[2025-09-07 16:24] LABS: Hematocrit 42.5 % (37-47); Hemoglobin 14.3 g/dL (12.0-15.0); Immature Granulocytes Count 0.120 X10^3/uL (0.0-0.0); Mean Corp Hgb Conc 33.6 g/dL (32-36); Mean Corpuscular Volume 92.4 fL (81-99); Mean Platelet Vol. 10.5 fl (6.2-12.0); NRBC Flagged by Analyzer 0 % (0-5); Platelet Count 339 K/mm3 (150-450); RBC Distribution Width CV 12.0 % (11.6-14.6); RBC Distribution Width SD 41.1 fl (35.1-43.9); Red Blood Count 4.60 M/mm3 (4.2-5.4); White Blood Count 15.4 K/mm3 (4.4-11.0)
[2025-09-07 16:27] LABS: Color, Urine Yellow (Yellow); Glucose, Dipstick 1000 mg/dl (Normal); Ketone-Dipstick 15 mg/dl (Negative); Leukocyte Esterase-Dipstick 500 /ul (Negative); Nitrite-Dipstick Positive (Negative); Occult Blood-Urine 25 /ul (Negative); Protein-Dipstick 30 mg/dl (Negative); Specific Gravity, Urine 1.015 (1.002-1.030); Urine Bilirubin Dipstick Negative (Negative)
[2025-09-07 16:36] LABS: Internal QC Validated? YES +Cl - CLEAR BKGD; Pregnancy, Serum, hCG Quali. NEGATIVE Negative
--- NOTE | 2025-09-07 16:37 | CM.ED ---
Social Work Date of referral: 09/07/25 Reason for referral: Mental Health Referred by: Miracle Laird Stage Set Up Worker was informed by ED physician that patient has not been medically cleared, has a UTI and meets the criteria for sepsis which will require admission to acute floor to treat. Since patient is not medically cleared, and patient had already denied any suicidal ideation, psychiatric assessment to be deferred until patient is medically cleared and prior to discharge. Stage Set Up Worker will ensure acute floor is aware. Joyce Valle, SUPERINTENDENT SYSTEM OPERATION, REHAB MANAGER
[2025-09-07 16:45] LABS: Alcohol, Blood (Medical)-Serum < 10.1 mg/dL (<=10.0)
[2025-09-07 16:47] LABS: Barbiturate Urine NEGATIVE (< 200 ng/mL); Benzodiazepine Urine NEGATIVE (< 200 ng/mL); PCP Urine NEGATIVE (< 25 ng/mL); THC Urine NEGATIVE (< 50 ng/mL)
[2025-09-07 16:59] LABS: Red Blood Cells-Urine 0-5 SEEN /hpf (0-5); Squamous Epithelial Cells - UA 0-5 SEEN /hpf (5-10)
[2025-09-07 17:00] LABS: Transitional Epithelial - Ur 0-5 SEEN /hpf (0-5)
[2025-09-07] MEDS: 0.9% Normal Saline (1000mL) 1,000 ML 999 ML IV ×4 (17:10→22:18)
--- NOTE | 2025-09-07 17:18 | ED.RN ---
Dr Laird notified of critical lactic
[2025-09-07 17:30] LABS: CPK Total, Creatine Kinase 128 U/L (24-195)
--- NOTE | 2025-09-07 17:41 | ED.RN ---
Dr Laird notified of sepsis alert.
[2025-09-07 17:58] LABS: BETA-HYDROXYBUTYRATE 1.7 mmol/L (0.0-0.3); Magnesium 2.2 mg/dL (1.5-2.2)
[2025-09-07 18:04] LABS: SITE Not entered; VBG BASE EXCESS -4 mmol/L (-1.0-3.5); VBG PO2 26 mmHg (25-40); VBG SO2 43 % (50-70); VBG TCO2 23 mmol/L (23-33)
[2025-09-07] MEDS: Piperacil/Tazobactam 3.375 GM in 0.9% Normal Saline (50mL MB+) 50 ML IV (18:33)
[2025-09-07 18:37] LABS: AST(SGOT) 28 U/L (<=31); Alanine Aminotransfer ALT/SGPT 37 U/L (<=34); Albumin, Serum 4.1 g/dL (3.5-5.0); Alkaline Phosphatase 99 U/L (35-104); Anion Gap 22 (5-15); BUN 28 mg/dL (4-19); BUN/Creat Ratio 26.7 RATIO (10-20); Calcium,Total 9.9 mg/dL (7.6-11.0); Carbon Dioxide 17.8 mmol/L (21.0-32.0); Chloride 96 mmol/L (98-108); Estimated Creatinine Clearance 63.82 ml/min (50-250); Globulin 3.3 g/dL (2.2-4.2); Glucose 827 mg/dL (70-99); Potassium 3.3 mmol/L (3.3-5.1)
[2025-09-07] MEDS: KCL 20MEQ in 0.45%NS 20 MEQ/1,000 ML IV.SOLN. 175 MEQ IV (18:39)
[2025-09-07] MEDS: Insulin Lispro 100 UNIT in 0.9% Normal Saline (100mL Bag) 99 ML 13.8 UNIT CONT INF (18:45)
--- NOTE | 2025-09-07 18:59 | ED.RN ---
ATTEMPTED TO CALL REPORT TO ICU. NO NURSES AVAILABLE TO TAKE REPORT AT THIS TIME.
--- NOTE | 2025-09-07 19:10 | ED.RN ---
REPORT CALLED TO ICU [facility] AT THIS TIME.
[2025-09-07 19:22] LABS: Anion Gap 18 (5-15); Carbon Dioxide 19.5 mmol/L (21.0-32.0); Chloride 98 mmol/L (98-108); Glucose 691 mg/dL (70-99); Potassium 3.7 mmol/L (3.3-5.1)
--- NOTE | 2025-09-07 20:07 | PCM.HP.STD ---
HPI - General General Date of Admission: 09/07/25 Date of Service: 09/07/25 Chief Complaint: Generalized illness HPI Narrative KATY CANALES, is a 55 F who presents to the emergency room at [facility] with various complaints that are nonsensical. Patient think she is dying, she says she does not have a physician, she says she got ill on the [place] at [facility] yesterday. Patient was last seen here approximately 5 years ago and has a history of bipolar disorder. Workup in the emergency room included labs which showed an elevated white blood cell count of 15.4, chemistry profile showed a carbon dioxide of 19.5 and an anion gap of 18, glucose was 691 and lactic acid was 3.5. Urinalysis showed 500 leukocyte esterase, more than 100 white blood cells, 4+ bacteria, and positive nitrite. Chest x-ray was unremarkable, CT of the brain showed no acute abnormality. Patient was felt to have toxic metabolic encephalopathy from sepsis and DKA, she will be admitted to ICU for further care. She will be maintained on IV antibiotics and seen in consultation by critical care. [facility] Medical History unable to obtain Home Medications ?Medication ?Instructions ?Recorded ?Last Taken ?Type benztropine 2 mg tablet 2 mg PO BID PRN Anxiety 04/18/19 Unknown History clozapine 200 mg tablet 200 mg PO QHS 04/18/19 Unknown History oxcarbazepine 300 mg tablet 300 mg PO QHS 04/18/19 Unknown History sertraline 100 mg tablet 100 mg PO DAILY 04/18/19 Unknown History oxcarbazepine 600 mg tablet PO 09/07/25 Unknown History Allergy/AdvReac Type Severity Reaction Status Date / Time No Known Allergies Allergy Verified 09/07/25 15:27 Social History Smoking Status: Unknown if ever smoked ROS Review of Systems ROS Unobtainable: due to encephalopathy, due to mental condition and due to mental status Patient's Goals Of Care . What would you like to achieve or improve as a result of your hospital stay?: Unable to ascertain due to patient's mental status Vital Signs Vital Signs Vital Signs: 09/07/25 15:22 09/07/25 17:22 09/07/25 17:39 Temperature 97.4 F L 98.2 F Temperature Source Oral Oral Pulse Rate 120 H 105 H 105 H Respiratory Rate 16 25 H Blood Pressure 132/84 H 123/74 H 123/74 H Blood Pressure Mean 100 90 90 Pulse Ox 96 95 Oxygen Delivery Method Room Air Room Air 09/07/25 18:21 09/07/25 18:57 09/07/25 19:00 Temperature 98.2 F Temperature Source Pulse Rate 99 98 97 Respiratory Rate 25 H 26 H 24 H Blood Pressure 125/110 H 94/73 Blood Pressure Mean 115 80 Pulse Ox 100 99 100 Oxygen Delivery Method Weight Weight: 85.8 kg Body Mass Index (BMI) 31.4 Physical Exam Const alert Constitutional Narrative: Patient does not appear in any distress, she is alert but confused, she is aware person and place General Appearance: cooperative, well kempt and well developed Orientation / Consciousness: awake, oriented to person and oriented to place HEENT normocephalic, head/scalp atraumatic, hearing grossly normal bilaterally and moist oral mucous membranes Eyes PERRL, EOMs intact bilaterally and conjunctivae normal Neck supple, no JVD, thyroid normal and no carotid bruits General: trachea midline Resp normal respiratory effort, no retractions, no use of accessory muscles and clear to auscultation bilaterally Auscultation: Negative for rales, rhonchi or wheezes Cardio regular rate, regular rhythm, S1 normal heart sound, S2 normal heart sound, no murmurs, no rub and no gallops GI normal to inspection, nondistended, normoactive bowel sounds, soft to palpation, non-tender and non-distended Extremity no clubbing, cyanosis or edema Skin no rashes or lesions noted General Skin Exam: no breakdown Neuro CN's II-XII intact bilaterally, moves all extremities, no focal motor deficits and no sensory deficits noted Neuro Narrative: Patient is alert and oriented x 2 Sensorium / Orientation: awake, alert, oriented to person and oriented to place Speech: speech normal Psych Psych Narrative: Patient is confused Results Lab / Micro Data 09/07/25 16:10 09/07/25 18:47 Labs: Laboratory Results - last 24 hr 09/07/25 15:45: Urine Color Yellow, Urine Clarity Cloudy, Urine pH 6.0, Ur Specific [place] 1.015, Urine Protein 30 H, Urine Glucose (UA) 1000 H, Urine Ketones 15 H, Urine Occult Blood 25 H, Urine Nitrite Positive H, Urine Bilirubin Negative, Urine Urobilinogen Normal, Ur Leukocyte Esterase 500 H, Urine RBC 0-5 SEEN, Urine WBC >100 SEEN, Ur Squamous Epith Cells 0-5 SEEN, Ur Transition Epith Cell 0-5 SEEN, Urine Bacteria 4+, Urine Mucus 0 SEEN, Urine Opiates Screen NEGATIVE, U Buprenorphine Qual NEGATIVE, Ur Oxycodone Screen NEGATIVE, Urine Methadone Screen NEGATIVE, Urine Fentanyl Screen NEGATIVE, Ur Barbiturates Screen NEGATIVE, Ur Phencyclidine Scrn NEGATIVE, Ur Amphetamines Screen NEGATIVE, U Benzodiazepines Scrn NEGATIVE, Urine Cocaine Screen NEGATIVE, U Cannabinoids Screen NEGATIVE 09/07/25 16:10: WBC 15.4 H, RBC 4.60, Hgb 14.3, Hct 42.5, MCV 92.4, MCH 31.1, MCHC 33.6, RDW Std Deviation 41.1, RDW Coeff of [place] 12.0, Plt Count 339, MPV 10.5, Immature Gran % (Auto) 0.800, Neut % (Auto) 80.8 H, Lymph % (Auto) 10.6 L, [place] % (Auto) 6.8, Eos % (Auto) 0.6, Baso % (Auto) 0.4, Absolute Neuts (auto) 12.4 H, Absolute Lymphs (auto) 1.63, Nucleated RBC % 0, Sodium 136, Potassium 3.3, Chloride 96 L, Carbon Dioxide 17.8 L, Anion Gap 22 H, BUN 28 H, Creatinine 1.05, Estim Creat Clear Calc 63.82, Est GFR (MDRD) Non-Af 58 L, BUN/Creatinine Ratio 26.7 H, Glucose 827 H*, Calcium 9.9, Phosphorus 4.0, Magnesium 2.2, Total Bilirubin 0.69, AST 28, ALT 37 H, Alkaline Phosphatase 99, Total Creatine Kinase 128, Total Protein 7.4, Albumin 4.1, Globulin 3.3, Albumin/Globulin Ratio 1.2, b-Hydroxybutyric mmol/L 1.7 H, TSH 2.490, Serum , Qual NEGATIVE, Ethyl Alcohol < 10.1 09/07/25 16:44: Lactic Acid 3.5 H* 09/07/25 18:47: Sodium 136, Potassium 3.7, Chloride 98, Carbon Dioxide 19.5 L, Anion Gap 18 H, Glucose 691 H* ABG Data ABG results: ABG 09/07/25 18:01 Specimen Type ROBERT Sample Site Not entered VBG pH 7.33 VBG pO2 26 VBG HCO3 22 VBG Total CO2 23 VBG O2 Sat (Calc) 43 L VBG Base Excess -4 L POC Mix VBG pCO2 Pt Tmp 42.2 O2 Delivery Device Not entered Rhythm Strip Rhythm Strip: Sinus Tach Rate: 115 Ectopy: None Imaging Radiology Impression Chest X-Ray 09/07/25 15:54 IMPRESSION: NEGATIVE SINGLE VIEW OF THE CHEST. Reading Location: [facility] Brain CT 09/07/25 15:58 IMPRESSION: No acute abnormality Reading Location: [facility] Assessment & Plan Assessment/Plan (1) Diabetic ketoacidosis: PLAN: Plan 1. Acute sepsis secondary to acute urinary tract infection-patient was started on Rocephin in the emergency room, she will be admitted to ICU and be seen by critical care, labs will be monitored, patient was given fluids in the emergency room #2 diabetic ketoacidosis-orders are entered using the DKA order set, labs will be monitored, patient will be given additional fluid, patient is on insulin drip at this time #3 metabolic and toxic encephalopathy-secondary to sepsis and DKA, supportive care will be given, it is unknown what the patient's baseline mental status is, patient toxicology screen was negative #4 bipolar disorder by history-complicates care, management, recovery, and prognosis Total clinical time spent by myself addressing the patient's medical issues, reviewing all of her data, and collaborating with patient's care team: 75 minutes Sepsis Attestation Sepsis Alert: Yes Sepsis Attestation: Agree w/Sepsis Date exam was performed: 09/07/25 Time exam was performed: 18:00 Possible Source of Sepsis: Genitourinary Sepsis Organ Dysfunction Criteria Present: Lactic Acid > 2 mmol/L Fluid Resuscitation Fluid resuscitation indicated?: Yes Fluid Resuscitation ordered: 30 ml/kg fluid bolus ordered Amount of fluid ordered: 3,500 Charges/Coding Visit Charges Inpatient E&M: 25290 Init Hosp L3
[2025-09-07 20:46] LABS: Reflex Lactate? Y
[2025-09-07] MEDS: Dext 5%-0.45% NS 1,000 ML 150 ML IV (22:19)
[2025-09-07 22:23] LABS: Magnesium 1.8 mg/dL (1.5-2.2)
[2025-09-07 22:33] LABS: Anion Gap 16 (5-15); Carbon Dioxide 18.4 mmol/L (21.0-32.0); Chloride 108 mmol/L (98-108); Potassium 2.7 mmol/L (3.3-5.1)
[2025-09-07] MEDS: Potassium Chloride 10mEq/100mL 10 MEQ/100 ML IV.SOLN. 100 MEQ IV BOLUS (23:12)
[2025-09-08] VITALS (16 sets, daily range): BP systolic 86–147; BP diastolic 50–82; PULSE 82–102; RESP 16–31; TEMP 36.3–37.4; O2SAT 94–100; BMI 32.6
[2025-09-08] MEDS: Potassium Chloride 10mEq/100mL 10 MEQ/100 ML IV.SOLN. 100 MEQ IV BOLUS ×3 (00:41→02:50)
[2025-09-08] MEDS: 0.9% Saline Lock 10 ML Syringe IV ×2 (01:44→09:24)
[2025-09-08 02:35] LABS: Magnesium 1.7 mg/dL (1.5-2.2)
[2025-09-08] MEDS: Dext 5%-0.45% NS 1,000 ML 150 ML IV (04:49)
[2025-09-08 04:59] LABS: Anion Gap 15 (5-15); Carbon Dioxide 18.3 mmol/L (21.0-32.0); Chloride 109 mmol/L (98-108); Potassium 3.1 mmol/L (3.3-5.1)
[2025-09-08 06:25] LABS: Magnesium 1.7 mg/dL (1.5-2.2)
[2025-09-08 06:45] LABS: Anion Gap 15 (5-15); Carbon Dioxide 18.1 mmol/L (21.0-32.0); Chloride 113 mmol/L (98-108); Potassium 3.2 mmol/L (3.3-5.1)
--- NOTE | 2025-09-08 08:42 | PCM.PN.HOSP ---
Reason for Visit Chief Complaint: Generalized illness Subjective Subjective Patient was seen and examined today, she is alert and appropriate, she states she lives in an apartment, she does not feel like she should be living by herself however. Potassium was 3.2 this morning, her anion gap is closed. Patient does not complain of anything specific, I talked briefly with social services assistant about her care. Objective Data Objective Data Vital Signs: Vital Signs Temp Pulse Resp BP Pulse Ox O2 Del Method 97.5 F L 88 19 H 98/68 94 Room Air 09/08/25 08:00 09/08/25 08:00 09/08/25 08:00 09/08/25 08:00 09/08/25 08:00 09/08/25 08:00 Oxygen Delivery Method Room Air Weight: 89 kg Body Mass Index (BMI) 32.6 Intake & Output: Intake and Output for Last 24 Hours 09/06/25 09/07/25 09/08/25 23:59 23:59 23:59 Intake Total 4126.2 / 4126.2 2881.4 / 2881.4 Balance 4126.2 / 4126.2 2881.4 / 2881.4 Lab / Micro Data 09/07/25 16:10 09/08/25 05:50 Labs: Laboratory Results - last 24 hr 09/07/25 15:45: Urine Color Yellow, Urine Clarity Cloudy, Urine pH 6.0, Ur Specific [place] 1.015, Urine Protein 30 H, Urine Glucose (UA) 1000 H, Urine Ketones 15 H, Urine Occult Blood 25 H, Urine Nitrite Positive H, Urine Bilirubin Negative, Urine Urobilinogen Normal, Ur Leukocyte Esterase 500 H, Urine RBC 0-5 SEEN, Urine WBC >100 SEEN, Ur Squamous Epith Cells 0-5 SEEN, Ur Transition Epith Cell 0-5 SEEN, Urine Bacteria 4+, Urine Mucus 0 SEEN, Urine Opiates Screen NEGATIVE, U Buprenorphine Qual NEGATIVE, Ur Oxycodone Screen NEGATIVE, Urine Methadone Screen NEGATIVE, Urine Fentanyl Screen NEGATIVE, Ur Barbiturates Screen NEGATIVE, Ur Phencyclidine Scrn NEGATIVE, Ur Amphetamines Screen NEGATIVE, U Benzodiazepines Scrn NEGATIVE, Urine Cocaine Screen NEGATIVE, U Cannabinoids Screen NEGATIVE 09/07/25 16:10: WBC 15.4 H, RBC 4.60, Hgb 14.3, Hct 42.5, MCV 92.4, MCH 31.1, MCHC 33.6, RDW Std Deviation 41.1, RDW Coeff of [place] 12.0, Plt Count 339, MPV 10.5, Immature Gran % (Auto) 0.800, Neut % (Auto) 80.8 H, Lymph % (Auto) 10.6 L, [place] % (Auto) 6.8, Eos % (Auto) 0.6, Baso % (Auto) 0.4, Absolute Neuts (auto) 12.4 H, Absolute Lymphs (auto) 1.63, Nucleated RBC % 0, Sodium 136, Potassium 3.3, Chloride 96 L, Carbon Dioxide 17.8 L, Anion Gap 22 H, BUN 28 H, Creatinine 1.05, Estim Creat Clear Calc 63.82, Est GFR (MDRD) Non-Af 58 L, BUN/Creatinine Ratio 26.7 H, Glucose 827 H*, Calcium 9.9, Phosphorus 4.0, Magnesium 2.2, Total Bilirubin 0.69, AST 28, ALT 37 H, Alkaline Phosphatase 99, Total Creatine Kinase 128, Total Protein 7.4, Albumin 4.1, Globulin 3.3, Albumin/Globulin Ratio 1.2, b-Hydroxybutyric mmol/L 1.7 H, TSH 2.490, Serum , Qual NEGATIVE, Ethyl Alcohol < 10.1 09/07/25 16:44: Lactic Acid 3.5 H* 09/07/25 18:47: Sodium 136, Potassium 3.7, Chloride 98, Carbon Dioxide 19.5 L, Anion Gap 18 H, Glucose 691 H* 09/07/25 19:47: POC Glucose 492 H* 09/07/25 20:49: POC Glucose 295 H 09/07/25 21:44: POC Glucose 243 H 09/07/25 21:45: Sodium 142, Potassium 2.7 L*, Chloride 108, Carbon Dioxide 18.4 L, Anion Gap 16 H, Lactic Acid 3.8 H*, Phosphorus 2.5 L, Magnesium 1.8 09/07/25 22:49: POC Glucose 267 H 09/07/25 23:42: POC Glucose 268 H 09/08/25 00:44: POC Glucose 279 H 09/08/25 01:47: POC Glucose 251 H 09/08/25 01:50: Sodium 143, Potassium 3.1 L, Chloride 109 H, Carbon Dioxide 18.3 L, Anion Gap 15, Phosphorus 2.5 L, Magnesium 1.7 09/08/25 02:46: POC Glucose 235 H 09/08/25 03:46: POC Glucose 244 H 09/08/25 05:50: Sodium 146 H, Potassium 3.2 L, Chloride 113 H, Carbon Dioxide 18.1 L, Anion Gap 15, Phosphorus 2.9, Magnesium 1.7 09/08/25 07:59: POC Glucose 193 H Micro: Microbiology 09/07/25 15:45 Urine, Clean Catch Streptococcus pneumoniae Antigen (M - Final ABG Data ABG results: ABG 09/07/25 18:01 Specimen Type ROBERT Sample Site Not entered VBG pH 7.33 VBG pO2 26 VBG HCO3 22 VBG Total CO2 23 VBG O2 Sat (Calc) 43 L VBG Base Excess -4 L POC Mix VBG pCO2 Pt Tmp 42.2 O2 Delivery Device Not entered Radiography Diagnostic Testing: Radiology Impression Chest X-Ray 09/07/25 15:54 IMPRESSION: NEGATIVE SINGLE VIEW OF THE CHEST. [facility] 09/07/25 15:58 IMPRESSION: No acute abnormality Reading Location: [facility] Rhythm Strip Rhythm Strip: Sinus Tach Rate: 115 Ectopy: None Patient's Goals Of Care - F/U Goals Reviewed Goals of care reviewed with patient: Yes - Goals changed What matters most to you about your health?: Being medically stable, feeling safe at home What would you like to achieve or improve as a result of your hospital stay?: Patient was unable to answer Physical Exam Const alert, no apparent distress and healthy appearing Constitutional Narrative: Patient does not appear confused today General Appearance: cooperative, well kempt and well developed Orientation / Consciousness: awake, oriented to person and oriented to place HEENT normocephalic, head/scalp atraumatic and moist oral mucous membranes Eyes PERRL, EOMs intact bilaterally and conjunctivae normal Neck supple, no JVD, thyroid normal and no carotid bruits General: trachea midline Resp normal respiratory effort, no retractions, no use of accessory muscles and clear to auscultation bilaterally Auscultation: Negative for rales, rhonchi or wheezes Cardio regular rate, regular rhythm, S1 normal heart sound, S2 normal heart sound, no murmurs, no rub and no gallops GI normal to inspection, nondistended, normoactive bowel sounds, soft to palpation, non-tender and non-distended Extremity no clubbing, cyanosis or edema Skin no rashes or lesions noted General Skin Exam: no breakdown Neuro CN's II-XII intact bilaterally, moves all extremities, no focal motor deficits and no sensory deficits noted Sensorium / Orientation: awake, alert, oriented to person and oriented to place Speech: speech normal Psych affect normal Assessment & Plan Assessment/Plan (1) Diabetic ketoacidosis: PLAN: Plan 1. Acute sepsis secondary to acute urinary tract infection-patient was started on Rocephin in the emergency room, Rocephin will continue for now, urine cultures pending, blood cultures pending, patient will be seen in consultation by critical care due to her acute sepsis #2 diabetic ketoacidosis-patient's anion gap has been closed x 2, she will receive electrolyte replacement as indicated by orders, patient states that she did not know she was diabetic. #3 metabolic and toxic encephalopathy-secondary to sepsis and DKA, supportive care will be given, patient is alert today and does not appear to be in any distress, she does not appear delusional #4 bipolar disorder by history-complicates care, management, recovery, and prognosis, I am unable to ascertain whether she is taking any psych medications as an outpatient. Yesterday patient told me she did not have a physician. Total clinical time spent by myself addressing the patient's medical issues, reviewing all of her data, and collaborating with patient's care team: 35 minutes Charges/Coding Visit Charges Inpatient E&M: 27743 Subs Hosp L2
--- NOTE | 2025-09-08 08:44 | CASEMGMT ---
Social Work MARCO reviewed [facility] in [facility], for any contact information for pt, no information is listed. MARCO researched pt on [facility] [facility] to see if she has a guardian, there is no record of guardianship. MARCO also researched pt on [facility] [address] [facility] as SW learned from the [facility] site that pt lived in [place] at one point. There is no records listed for pt in [facility] that this SW was able to find. SW called [facility] [facility], they do not have record of pt having a guardian. MARCO called [facility]. As per [facility], pt does not have a guardian. She does have a pillowcase cutter, Nadya Palencia, who is covering for her regular pillowcase cutter who is out on [facility]. Also, SW given a refrigeration person for pt of Ashley Pink, who appears to be a friend, . MARCO called Nadya, she is out until September 22. MARCO will speak w/pt before calling [facility] back and speaking to whomever may be covering for Nadya. [employer]
--- NOTE | 2025-09-08 09:10 | CON.PCM.CC_ITS ---
Assessment & Plan Assessment/Plan (1) Diabetic ketoacidosis: PLAN: Plan RECOMMENDATIONS: 1. Okay to transition from continuous to basal insulin and sliding scale coverage. 2. Continuous IV fluids as ordered. 3. Continue empiric antimicrobials. 4. Dietary advancement as tolerated. 5. Encourage incentive spirometer use and mobilize patient as tolerated. 6. Will sign off from a critical care perspective. Please call with any additional questions. IMPRESSIONS: 1. Sepsis The patient presented with sepsis due to suspected UTI with acute sepsis related organ dysfunction as evidenced by lactic acidemia. The patient did receive supplemental IV fluid hydration per sepsis protocol and has remained hemodynamically stable. Preliminary urine culture is demonstrating growth of E. coli. Blood cultures are pending. Plan to continue empiric antimicrobials, pending finalized culture results. 2. DKA Managed per protocol with supplemental IV fluids and continuous insulin. Anion gap has been closed now x 2. The patient can be transitioned from continuous to basal and sliding scale coverage with dietary advancement as tolerated. 3. Bipolar disorder Complicates care, management, recovery and prognosis. Continue supportive care as noted above. This note was generated with [employer] dictation software. It may contain incorrect words, spelling, and punctuation that were not noted in checking the note before signing. HPI Consult Data Date of Consult: 09/08/25 HPI Narrative Reason for Consultation: Sepsis, DKA HPI Narrative: The patient is a 55-year-old female, with a history as outlined below, who presented to the emergency department via EMS on September 07 with generalized weakness. The patient has a known history of underlying bipolar disorder. On presentation to the emergency department, the patient was noted to be afebrile and hemodynamically stable. She was, however, notably tachycardic and tachypneic. Oxygen saturations were stable on room air. Laboratory evaluation revealed a white blood cell count of 15,000. Chemistry profile was notable for an anion gap of 22 with a creatinine of 1.05 and glucose of 827. Lactate was elevated at 3.5. Beta hydroxybutyrate level was increased to 1.7. Urine analysis was positive for nitrites, leukocyte esterase, greater than 100 white blood cells and 4+ urine bacteria. Toxicology screen was negative. Alcohol level was negative. Head CT was unremarkable. The patient was initiated on supplemental IV fluid hydration over concerns for underlying sepsis along with antimicrobials. In addition, DKA protocol was undertaken with continuous insulin. The patient was admitted to the medical intensive care unit for further management. Overnight, the patient has remained clinically stable. She has no specific complaints this morning. Anion gap is closed x 2 at this time. [facility] Medical History unable to obtain Home Medications ?Medication ?Instructions ?Recorded ?Last Taken ?Type benztropine 2 mg tablet 2 mg PO BID PRN Anxiety 10/06 Unknown History clozapine 200 mg tablet 200 mg PO QHS 04/18/19 Unkno wn History oxcarbazepine 300 mg tablet 300 mg PO QHS 04/18/19 Unk nown History sertraline 100 mg tablet 100 mg PO DAILY 04/18/19 Unk nown History oxcarbazepine 600 mg tablet PO 09/07/25 Unknown Histor y Allergy/AdvReac Type Severity Reaction Status Date / Time No Known Allergies Allergy Verified 09/07/25 15:27 Social History Smoking Status: Unknown if ever smoked ROS ROS Narrative 10 systems were reviewed with pertinent positives as noted in the HPI above. Physical Exam Const alert and no apparent distress Constitutional Narrative: Obese. Resting comfortably in bed. General Appearance: cooperative HEENT normocephalic and head/scalp atraumatic Eyes PERRL, EOMs intact bilaterally and conjunctivae normal Neck supple General: trachea midline Chest inspection of chest normal Resp normal respiratory effort Auscultation: diminished lung sounds; Negative for rales, rhonchi or wheezes Cardio regular rate and regular rhythm GI normal to inspection, nondistended, normoactive bowel sounds Extremity no clubbing, cyanosis or edema Skin no rashes or lesions noted Neuro CN's II-XII intact bilaterally, moves all extremities and no focal motor deficits Psych Mood & Affect: flat affect Lab / Micro Data 09/07/25 16:10 09/08/25 05:50 Labs: Laboratory Results - last 24 hr 09/07/25 15:45: Urine Color Yellow, Urine Clarity Cloudy, Urine pH 6.0, Ur Specific [place] 1.015, Urine Protein 30 H, Urine Glucose (UA) 1000 H, Urine Ketones 15 H, Urine Occult Blood 25 H, Urine Nitrite Positive H, Urine Bilirubin Negative, Urine Urobilinogen Normal, Ur Leukocyte Esterase 500 H, Urine RBC 0-5 SEEN, Urine WBC >100 SEEN, Ur Squamous Epith Cells 0-5 SEEN, Ur Transition Epith Cell 0-5 SEEN, Urine Bacteria 4+, Urine Mucus 0 SEEN, Urine Opiates Screen NEGATIVE, U Buprenorphine Qual NEGATIVE, Ur Oxycodone Screen NEGATIVE, Urine Methadone Screen NEGATIVE, Urine Fentanyl Screen NEGATIVE, Ur Barbiturates Screen NEGATIVE, Ur Phencyclidine Scrn NEGATIVE, Ur Amphetamines Screen NEGATIVE, U Benzodiazepines Scrn NEGATIVE, Urine Cocaine Screen NEGATIVE, U Cannabinoids Screen NEGATIVE 09/07/25 16:10: WBC 15.4 H, RBC 4.60, Hgb 14.3, Hct 42.5, MCV 92.4, MCH 31.1, MCHC 33.6, RDW Std Deviation 41.1, RDW Coeff of [place] 12.0, Plt Count 339, MPV 10.5, Immature Gran % (Auto) 0.800, Neut % (Auto) 80.8 H, Lymph % (Auto) 10.6 L, [place] % (Auto) 6.8, Eos % (Auto) 0.6, Baso % (Auto) 0.4, Absolute Neuts (auto) 12.4 H, Absolute Lymphs (auto) 1.63, Nucleated RBC % 0, Sodium 136, Potassium 3.3, Chloride 96 L, Carbon Dioxide 17.8 L, Anion Gap 22 H, BUN 28 H, Creatinine 1.05, Estim Creat Clear Calc 63.82, Est GFR (MDRD) Non-Af 58 L, BUN/Creatinine Ratio 26.7 H, Glucose 827 H*, Calcium 9.9, Phosphorus 4.0, Magnesium 2.2, Total Bilirubin 0.69, AST 28, ALT 37 H, Alkaline Phosphatase 99, Total Creatine Kinase 128, Total Protein 7.4, Albumin 4.1, Globulin 3.3, Albumin/Globulin Ratio 1.2, b -Hydroxybutyric mmol/L 1.7 H, TSH 2.490, Serum , Qual NEGATIVE, Ethyl Alcohol < 10.1 09/07/25 16:44: Lactic Acid 3.5 H* 09/07/25 18:47: Sodium 136, Potassium 3.7, Chloride 98, Carbon Dioxide 19.5 L, A nion Gap 18 H, Glucose 691 H* 09/07/25 19:47: POC Glucose 492 H* 09/07/25 20:49: POC Glucose 295 H 09/07/25 21:44: POC Glucose 243 H 09/07/25 21:45: Sodium 142, Potassium 2.7 L*, Chloride 108, Carbon Dioxide 18.4 L, Anion Gap 16 H, Lactic Acid 3.8 H*, Phosphorus 2.5 L, Magnesium 1.8 09/07/25 22:49: POC Glucose 267 H 09/07/25 23:42: POC Glucose 268 H 09/08/25 00:44: POC Glucose 279 H 09/08/25 01:47: POC Glucose 251 H 09/08/25 01:50: Sodium 143, Potassium 3.1 L, Chloride 109 H, Carbon Dioxide 18.3 L, Anion Gap 15, Phosphorus 2.5 L, Magnesium 1.7 09/08/25 02:46: POC Glucose 235 H 09/08/25 03:46: POC Glucose 244 H 09/08/25 05:50: Sodium 146 H, Potassium 3.2 L, Chloride 113 H, Carbon Dioxide 18.1 L, Anion Gap 15, Phosphorus 2.9, Magnesium 1.7 09/08/25 07:59: POC Glucose 193 H Micro: Microbiology 09/07/25 15:45 Urine, Clean Catch Urine Culture - Preliminary Presumptive E. coli 09/07/25 15:45 Urine, Clean Catch Streptococcus pneumoniae Antigen (M - Final ABG Data ABG results: ABG 09/07/25 18:01 Specimen Type ROBERT Sample Site Not entered VBG pH 7.33 VBG pO2 26 VBG HCO3 22 VBG Total CO2 23 VBG O2 Sat (Calc) 43 L VBG Base Excess -4 L POC Mix VBG pCO2 Pt Tmp 42.2 O2 Delivery Device Not entered Rhythm Strip Rhythm Strip: Sinus Tach Rate: 115 Ectopy: None Imaging Radiology Impression Chest X-Ray 09/07/25 15:54 IMPRESSION: NEGATIVE SINGLE VIEW OF THE CHEST. Reading Location: [facility] Brain CT 09/07/25 15:58 IMPRESSION: No acute abnormality Reading Location: [facility] Charges/Coding Visit Charges Inpatient E&M: 94172 Init Hosp L2
[2025-09-08 09:40] LABS: Hematocrit 31.9 % (37-47); Hemoglobin 10.9 g/dL (12.0-15.0); Immature Granulocytes Count 0.060 X10^3/uL (0.0-0.0); Mean Corp Hgb Conc 34.2 g/dL (32-36); Mean Corpuscular Volume 90.9 fL (81-99); Mean Platelet Vol. 10.4 fl (6.2-12.0); NRBC Flagged by Analyzer 0 % (0-5); Platelet Count 251 K/mm3 (150-450); RBC Distribution Width CV 11.9 % (11.6-14.6); RBC Distribution Width SD 39.6 fl (35.1-43.9); Red Blood Count 3.51 M/mm3 (4.2-5.4); White Blood Count 11.8 K/mm3 (4.4-11.0)
--- NOTE | 2025-09-08 10:08 | CASEMGMT ---
Addendum entered by Cayla Ochoa 09/08/25 11:09: Social Work SW received a call back from the number we had for Ashley Bermeo, stating that this is not her number. NATO Rand Original Note: Social Work SW met w/pt, reviewed prior level of function and anticipated discharge plan. Though pt is alert and oriented, pt seems to be showing signs of struggling to distinguish what has happened prior to her hospital stay, what may be real and what may be not real. PCP: Pt does not have a PCP Specialists: Dr. Allen at [facility] for psych meds Preferred Pharmacy: [facility] Insurance/Prescription benefit: [employer] Medicare HMO Living Will/HCPOA: None on file LNOK: Pt states Ashley Pink is her mother, . Pt states she has two sons, Giorgi and Bret, and has not seen them for years. She states she took care of them for a time, but have been with their father since a young age. She states they are over 18, has not seen them since they were children. Living Arrangements/Prior level of function: Pt lives home alone in a second floor apartment, with a flight to her apartment. Normally she is independent with all ADLS though states she is having a tough time now. Transportation: Pt states had a [employer], is not certain if she has it anymore. She takes taxis now. DME: Pt reports no DME HHC/SNF: Pt reports no history of home health or SNF MH: Pt reports to have bipolar, she states she does not know the name of any other mental illness she has. Substance Use: Pt reports none. PLAN: TBD. Pt states the diabetes is new for her, so she will need teaching on how to manage this. Pt states she is gong to have a difficult time caring for herself as her legs are broken. She then said her arms, ankles and toes are all broken. She [place]. When asked why she was on the golf course, pt states that she was trying to control her pain. She states she threw away her medications as she states she was dying, but states she is trying to live. She states Dr. Allen prescribes her medications. She also told SW that she saw hell, and this was scary. Pt states she knows she is going to heaven however as God told her. SW inquired if she has trouble sometimes distinguishing between a nightmare and what is real. Pt does confirm she has nightmares. SW offered support to pt. SW explained we will follow along to see what she may need when she is ready for discharge. Pt states she does not feel she can care for herself due to her legs and arms being broken. Pt denies any suicidality, states feels safe here. Pt states, I was trying to live! We discussed SNF placement briefly, she states her grandparents are at [facility], Linda Unger and Jamar Benz. She states that [facility] won't let her see them know, SW inquired who this is, she states it is her uncle. She states that he thinks she will ask them for money but she wouldn't. She said she donated money to [facility] for the pool. SW explained will be following along to see what she may need when she is closer to being ready for discharge. SW called [facility], her caser shoe parts Nadya is on vacation, her voicemail states to call crisis. SW called Crisis, spoke w/Malinda. She was able to let SW know her diagnoses are as follows; Schizoaffective disorder bipolar type, paranoid schizophrenia, drug induced subacute dyskinesia. Pt's medications are benzotriazine, clozapine, and Zoloft. Also, Malinda states pt sent an email on the of this month stating she was feeling much better and so she stopped taking all of her medications, including a diuretic. Pt had said she even stopped peeing herself. It is unclear who prescribed the diuretic as pt does not have a PCP. [facility] records stat that this pt has been historically unstable, though has been stable the last few months. She had an appt, and staff at [facility] did try to get her in for this appt, were going to arrange transportation, but pt's voicemail was full and they could not leave her a message. SW updated physician. SW will continue to follow, it is likely pt may need an assessment by crisis to see if psych placement would be warranted to get pt stabilized on her medication again, vs a possible SNF placement. SW will continue to follow. NATO Rand
[2025-09-08] MEDS: Insulin Glargine-YFGN 100 UNIT/ML Pen 10 UNIT SC ×2 (12:02→22:46)
[2025-09-08 20:09] LABS: Anion Gap 16 (7-18); Carbon Dioxide 19.9 mmol/L (20.0-29.0); Chloride 109 mmol/L (96-106); Magnesium 1.8 mg/dL (1.5-2.2); Potassium 3.3 mmol/L (3.5-5.1)
[2025-09-08] MEDS: Erythromycin Base 1 OPTH.TUBE 1 APPLIC RIGHT EYE (22:44)
[2025-09-08 23:42] LABS: Magnesium 1.7 mg/dL (1.5-2.2)
[2025-09-08 23:56] LABS: Anion Gap 14 (7-18); Carbon Dioxide 18.1 mmol/L (20.0-29.0); Chloride 109 mmol/L (96-106); Potassium 3.3 mmol/L (3.5-5.1)
[2025-09-09] VITALS: PULSE 97
[2025-09-09 02:50] LABS: Magnesium 1.9 mg/dL (1.5-2.2)
[2025-09-09 03:18] LABS: Anion Gap 18 (7-18); Carbon Dioxide 15.0 mmol/L (20.0-29.0); Chloride 110 mmol/L (96-106); Potassium 3.6 mmol/L (3.5-5.1)
[2025-09-09 03:50] VITALS: BP 114/55; PULSE 90; RESP 16; TEMP 36.8; O2SAT 96
[2025-09-09 04:00] VITALS: PULSE 90
[2025-09-09 05:29] VITALS: BMI 32.4
[2025-09-09] MEDS: Erythromycin Base 1 OPTH.TUBE 1 APPLIC RIGHT EYE (06:24)
[2025-09-09] MEDS: Insulin Glargine-YFGN 100 UNIT/ML Pen 10 UNIT SC (10:13)
--- NOTE | 2025-09-09 10:45 | CASEMGMT ---
Addendum entered by Rosibel No 09/09/25 11:28: Social Work Phone call to Crisis and referral made to [facility]. Clinicals faxed. Crisis to see pt today. MAYA Myrick Original Note: Social Work SW met with pt and introduced self. Pt states she is not feeling well today. SW inquired if pt has been out of bed and pt confirms that she has been up and was able to walk but not well because her legs are broken. Upon further questioning, pt states that her feet and toes are broken, that she can walk a little but it is very painful. When asked how the breaks happened, pt states the breaks in her legs happened a few days ago when she was in hell and it was very scary, but God did not make her stay in hell. SW spoke to physician to determine plan moving forward. Per physician, referral to be sent to crisis for psychiatric assessment. MAYA Myrick
--- NOTE | 2025-09-09 11:00 | NURSING ---
At this time patient is refusing to have vital signs taken. Did allow this nurse to check her blood sugar. Will attempt to obtain vital signs at a later time if patient is agreeable.
--- NOTE | 2025-09-09 15:08 | CASEMGMT ---
Social Work Crisis counselor her to see pt. After evaluation it is felt pt is not safe to return home and that psychiatric placement is warranted. [place] [facility] placed on the front of the chart. Crisis is working on finding pt appropriate placement. MARCO received call from [facility] who states referral was made to this facility. [facility] states there is a 190 day lifetime limit on allowable psychiatric hospital stays and pt has used her 190 allowable days. Therefore [facility] cannot accept. Phone call to Crisis and spoke with Tao. MARCO passed this information on to Crisis. Crisis to review this information and make additional plans. MAYA Myrick
--- NOTE | 2025-09-09 16:49 | CASEMGMT ---
Social Work Per community service worker, [facility] called and does not have beds available to accept pt. Crisis continues working on psych placement. MAYA Myrick
--- NOTE | 2025-09-09 19:10 | PN.HOSP_ITS ---
Reason for Visit Chief Complaint: Generalized illness Subjective Subjective Patient was seen and examined today, she remains delusional and will not allow nursing to obtain vitals or check blood sugars. Patient is also not eating at this time. I ordered IM Haldol to see if this would help the patient regarding her paranoid ideations, nursing hesitated to give the IM Haldol and requested that nursing continue to try to work with the patient to cooperate. Patient was seen by crisis today and she is on a waiting list to go to a psych facility. Objective Data Objective Data Vital Signs: Vital Signs Temp Pulse Resp BP Pulse Ox O2 Del Method O2 Flow Rate 98.2 F 90 16 114/55 L 96 Room Air 4 09/09/25 03:50 09/09/25 04:00 09/09/25 03:50 09/09/25 03:50 09/09/25 03:50 09/09/25 03:50 09/08/25 22:12 Oxygen Flow Rate (L/min) 4 Oxygen Delivery Method Room Air Weight: 88.4 kg Body Mass Index (BMI) 32.4 Intake & Output: Intake and Output for Last 24 Hours 09/07/25 09/08/25 09/09/25 23:59 23:59 23:59 Intake Total 4126.2 / 4126.2 3470.59 / 3470.59 250 / 250 Balance 4126.2 / 4126.2 3470.59 / 3470.59 250 / 250 Lab / Micro Data 09/08/25 09:30 09/09/25 02:00 Labs: Laboratory Results - last 24 hr 09/08/25 18:51: POC Glucose 289 H 09/08/25 19:21: Sodium 144, Potassium 3.3 L, Chloride 109 H, Carbon Dioxide 19.9 L, Anion Gap 16, Phosphorus 2.9, Magnesium 1.8 09/08/25 22:42: Sodium 142, Potassium 3.3 L, Chloride 109 H, Carbon Dioxide 18.1 L, Anion Gap 14, Phosphorus 3.0, Magnesium 1.7 09/08/25 22:45: POC Glucose 281 H 09/09/25 02:00: Sodium 143, Potassium 3.6, Chloride 110 H, Carbon Dioxide 15.0 L , Anion Gap 18, Phosphorus 3.0, Magnesium 1.9 09/09/25 07:55: POC Glucose 302 H 09/09/25 11:36: POC Glucose 305 H Micro: Microbiology 09/07/25 15:45 Urine, Clean Catch Urine Culture - Final Presumptive E. coli 09/07/25 15:45 Urine, Clean Catch Streptococcus pneumoniae Antigen (M - Final Rhythm Strip Rhythm Strip: Sinus Tach Rate: 115 Ectopy: None Physical Exam Const alert and no apparent distress Constitutional Narrative: Patient does not appear confused today General Appearance: cooperative, well kempt and well developed Orientation / Consciousness: awake, oriented to person and oriented to place HEENT normocephalic, head/scalp atraumatic, hearing grossly normal bilaterally and moist oral mucous membranes Eyes PERRL, EOMs intact bilaterally and conjunctivae normal Neck supple, no JVD, thyroid normal and no carotid bruits General: trachea midline Resp normal respiratory effort, no retractions, no use of accessory muscles and clear to auscultation bilaterally Auscultation: Negative for rales, rhonchi or wheezes Cardio regular rate, regular rhythm, S1 normal heart sound, S2 normal heart sound, no murmurs, no rub and no gallops GI normal to inspection, nondistended, normoactive bowel sounds, soft to palpation, non-tender and non-distended Extremity no clubbing, cyanosis or edema Skin no rashes or lesions noted General Skin Exam: no breakdown Neuro CN's II-XII intact bilaterally, moves all extremities, no focal motor deficits and no sensory deficits noted Neuro Narrative: Patient is alert and oriented x 2 Sensorium / Orientation: awake, alert, oriented to person and oriented to place Speech: speech normal Psych Psych Narrative: Patient is confused at times Assessment & Plan Assessment/Plan (1) Diabetic ketoacidosis: PLAN: Plan 1. Acute sepsis secondary to acute urinary tract infection-patient was started on Rocephin in the emergency room #2 diabetic ketoacidosis-patient's anion gap has been closed x 2, she will receive electrolyte replacement as indicated by orders, patient states that she did not know she was diabetic. #3 metabolic and toxic encephalopathy-secondary to sepsis and DKA, supportive care will be given, patient is alert today and does not appear to be in any distress, she does appear delusional #4 bipolar disorder by history-complicates care, management, recovery, and prognosis, I am unable to ascertain whether she is taking any psych medications as an outpatient. Yesterday patient told me she did not have a physician. #5 possible schizophrenia-complicates care, management, recovery, and prognosis Total clinical time spent by myself addressing the patient's medical issues, reviewing all of her data, and collaborating with patient's care team: 35 minutes Charges/Coding Visit Charges Inpatient E&M: 63945 Subs Hosp L2
[2025-09-09] MEDS: Insulin Glargine-YFGN 100 UNIT/ML Pen 20 UNIT SC (20:22)
[2025-09-09] MEDS: 0.9% Saline Lock 10 ML Syringe IV (20:22)
[2025-09-09 20:31] VITALS: BP 97/61; PULSE 84; RESP 17; TEMP 36.1; O2SAT 100
--- NOTE | 2025-09-09 21:49 | NURSING ---
Physicians transport here for patient blood sugar checked per transport. Result was 350. Messaged Xiomara Robledo cnp regarding result. Pt had 20 units long acting insulin and had refused her afternoon insulin with supper. Order received for 6 units lispro insulin. Gave according to order. Update given to Jena at [facility] regarding blood sugar results and treatment. States ok to transfer still. Pt left at this time with belongings.
--- NOTE | 2025-09-10 08:19 | PCM.DC.SUM ---
Providers Date of Admission: 09/07/25 Date of Discharge: 09/09/25 Primary Care Physician: Camryn Primary Care Phys Consultations 09/07/25 19:20 Consult: Tool Technician / Pulmonary Medicine Routine Consulting Provider: Intensivists/Pulmonary Med Reason for Consult: Sepsis EMERGENT Consult: No MD Notified: Yes Date Notified: 09/07/25 Time Notified: 18:39 Method of Notification: Verbal Reason For Visit: DKA, SEPSIS Diagnosis Discharge Diagnosis (1) Diabetic ketoacidosis: Status: Acute Code(s): E11.10 - Type 2 diabetes mellitus with ketoacidosis without coma Plan 1. Acute sepsis secondary to acute urinary tract infection-patient was started on Rocephin in the emergency room #2 diabetic ketoacidosis-patient's anion gap has been closed x 2, she will receive electrolyte replacement as indicated by orders, patient states that she did not know she was diabetic. #3 metabolic and toxic encephalopathy-secondary to sepsis and DKA, supportive care will be given, patient is alert today and does not appear to be in any distress, she does appear delusional #4 bipolar disorder by history-complicates care, management, recovery, and prognosis, I am unable to ascertain whether she is taking any psych medications as an outpatient. Yesterday patient told me she did not have a physician. #5 possible schizophrenia-complicates care, management, recovery, and prognosis Total clinical time spent by myself addressing the patient's medical issues, reviewing all of her data, and collaborating with patient's care team: 35 minutes Medications at Discharge Home Medications benztropine 2 mg tablet 2 mg PO BID PRN Anxiety 04/18/19 clozapine 200 mg tablet 200 mg PO QHS 04/18/19 oxcarbazepine 300 mg tablet 300 mg PO QHS 04/18/19 sertraline 100 mg tablet 100 mg PO DAILY 04/18/19 oxcarbazepine 600 mg tablet PO 09/07/25 Hospital Course Operations None Procedures None Summary of Care Provided Minutes Spent on Discharge: 32 Hospital Course: This 55-year-old white female was seen in the emergency room at [facility] complaining of various nonsensical items ( see, vaginal bleeding, feelings of suffocation, breast pain, cancer in her brain, cancer in her breast) and stated she called EMS because she felt she was dying workup in the emergency room included labs which indicated the patient was in DKA, patient also had evidence of cystitis and sepsis. Patient was started on insulin drip and given fluids and given IV antibiotics, she was admitted to ICU and seen by critical care, she was eventually able to be transferred out to PCU and she remained delusional at times she would not allow nursing to take vitals or take blood sugars. Crisis was consulted, they recommended pink slapping her and sending her to a psych facility for further treatment, it was noted by nursing that the patient stopped her psych meds sometime ago because she felt she did not need them. On 09/09/2025, patient was seen and examined: On examination she appeared in no distress, she does not appear to be in any distress. Vital signs as documented. Skin warm and dry and without overt rashes. Neck without JVD, thyroid appears normal, trachea is midline, neck is supple. Lungs clear, normal air movement was noted. Heart exam notable for regular rhythm, normal sounds and absence of murmurs, rubs or gallops. Abdomen unremarkable and without evidence of organomegaly, masses, or abdominal aortic enlargement, bowel sounds are present in all 4 quadrants, no abdominal tenderness was noted. Extremities nonedematous, no cyanosis was noted, no clubbing was noted. Neuro: Cranial nerves II through XII are grossly intact, no focal motor deficits were noted, sensation to light touch and pinprick is intact, motor exam 5/5 throughout. Psych: Patient is alert and oriented x2, she does not appear anxious or depressed, she is delusional at times. Patient was transferred to an inpatient psychiatric facility on 09/09/2025 in stable condition Weight / BMI Weight Weight: 88.4 kg Body Mass Index (BMI) 32.4 ABG / Lab / Microbiology Data 09/08/25 09:30 09/09/25 02:00 Laboratory: Laboratory Results - last 24 hr 09/09/25 11:36: POC Glucose 305 H 09/09/25 20:16: POC Glucose 276 H Microbiology: Microbiology 09/07/25 17:41 Blood Culture (Wb) - Anticubital Left Blood Culture - Preliminary No growth in 48 hours. 09/07/25 17:38 Blood Culture (Wb) - Anticubital Right Blood Culture - Preliminary No growth in 48 hours. 09/07/25 15:45 Urine, Clean Catch Urine Culture - Final Presumptive E. coli 09/07/25 15:45 Urine, Clean Catch Streptococcus pneumoniae Antigen (M - Final D/C Instructions DC O2, CPAP, BIPAP Needs Home O2 Discharge instructions: No Meaningful Use Info Meaningful Use Meaningful Use Diagnoses (Choose all that apply): None applicable Discharge Plan Admission Admit Date/Time: 09/07/25 18:28 Primary Reason for Your Visit: DKA Attending Provider: Daniel Faria Primary Care Provider: Care Physician,No Primary Consulting Providers: Jamil Mclain; Maurciio Wing; Bob Gresham; Clayton Mott; Hunter Julien; Dylon Pennington; Krystal Diallo; Ghassna Haddad; Garth Tomlin; Abbe Osborn; Margarette Reddy; Venkatesh Puckett; Erick Galvan; Chayo Hanks; Ravi Diggs; Cezar Savage; Perry Farrell; Anamika Roper; Sharyn Francisco; Ernestina Moncada; Liza Cardoso; Hollis Whitt; Daniel Stratton; Michelle Swift; Myranda Newsome; Jacqueline Arias; Kanu Rashid; Michelle Subramanian; Kt Gonzalez; Zeke Diaz; Saurabh Blair; Heather Salcido; Abad Dsouza; Harry Rojo; Cesilia Hilario; Spencer Kelly; Johana Rai; Arianna Alexis; Khurram Chawla; Pedrito Antunez; Vijay Dkue; Pamela Cortez; Kali Aldana Discharge Orders/Prescriptions Prescriptions: No Action sertraline 100 MG tablet 100 mg PO DAILY oxcarbazepine 300 MG tablet 300 mg PO QHS benztropine 2 MG tablet 2 mg PO BID PRN (Reason: Anxiety) clozapine 200 MG tablet 200 mg PO QHS oxcarbazepine 600 mg tablet PO Referrals / Follow Up: Care Physician,No Primary [Primary Care Provider, Medical] Disposition Disposition (needs filled in before D/C Order can be placed): Psychiatric Hospital or Unit Charges/Coding Visit Charges Inpatient E&M: 29924 Disch Hosp >30min
== END 2025-09-09 20:54 | DRG 871 ==
LOC: ED 18:40 → ICU 19:02 → PCU 09-08 17:35
PROVIDERS: Admitting Provider Internal Medicine; Emergency Provider Emergency Medicine; Visit Provider Internal Medicine
DX: A41.9 Sepsis, unspecified organism (principal); E11.10 Type 2 diabetes mellitus with ketoacidosis without coma; G92.8 Other toxic encephalopathy; N39.0 Urinary tract infection, site not specified; F31.9 Bipolar disorder, unspecified; F20.9 Schizophrenia, unspecified; B96.20 Unspecified Escherichia coli [E. coli] as the cause of diseases classified elsewhere; Z79.899 Other long term (current) drug therapy
CPT/HCPCS: 36415; 70450; 71045; 80051; 80053; 80307; 81001; 82010; 82077; 82550; 82803; 82947; 82962; 83605; 83735; 84100; 84443; 84703; 85025; 87040; 87077; 87086; 87088; 87186; 87449; 93005; 97802; 99285; A4216